=== PATIENT | male | born 1945 | race Caucasian/White ===

== ENCOUNTER 2017-05-03 08:08 | Emergency (ER) | payer MEDICARE, OTHER ==
[~2017-05-03] VITALS: Ht 193 cm; Wt 122.5 kg
[~2017-05-03 08:08] MED LIST: ALPROSTADIL INJ; AMIT50 PO; ASPI325 PO; Antivert25 MG PO; CARV25 PO; DILT180 PO; INSUAS7030 INJ; LISI20 PO; PROM25 PO; SIMV40 PO; TRAM50 PO
[2017-05-03 08:25] LABS: BASOPHILS ABSOLUTE AUTO 0.04 K/mm3 (0.00-0.23); BASOPHILS PERCENT AUTO 0 % (0-2); EOSINOPHILS ABSOLUTE AUTO 0.23 K/mm3 (0.00-0.68); EOSINOPHILS PERCENT AUTO 2 % (0-6); Hematocrit 38.5 % (37.0-53.0); Hemoglobin 12.7 g/dL (13.5-17.5); IMMATURE GRAN ABSOLUTE AUTO 0.04 K/mm3 (0.00-0.10); IMMATURE GRAN PERCENT AUTO 0 % (0-1); LYMPHOCYTES ABSOLUTE AUTO 1.31 K/mm3 (0.84-5.20); LYMPHOCYTES PERCENT AUTO 13 % (21-46); MONOCYTES ABSOLUTE AUTO 1.24 K/mm3 (0.16-1.47); MONOCYTES PERCENT AUTO 12 % (4-13); Mean Corpuscular HGB 31.6 pg (26.0-34.0); Mean Corpuscular Volume 96 fL (80-100); Mean Platelet Volume 10.6 fL (9.1-12.4); NEUTROPHILS ABSOLUTE AUTO 7.13 K/mm3 (1.96-9.15); NEUTROPHILS PERCENT AUTO 71 % (41-73); Platelet Count 209 K/mm3 (150-400); RDW Coefficient Variation 12.6 % (11.7-14.2); RDW Standard Deviation 44.8 fL (35.1-46.3); Red Blood Cell Count 4.02 M/mm3 (4.30-5.90); White Blood Cell Count 9.99 K/mm3 (4.00-11.30)
[2017-05-03 08:45] LABS: Bun/Creatinine Ratio 11.8 (12.0-20.0); Calcium, Blood 8.9 mg/dL (8.5-10.1); Creatinine, Blood 3.47 mg/dL (0.60-1.20); Potassium, Blood 4.6 mmol/L (3.5-5.5)
[2017-05-03] MEDS ORDERED: Prednisone20 MG PO (10:46)
== END 2017-05-03 11:16 | disposition home or self-care (01) ==
LOC: ER 08:08
PROVIDERS: Emergency Medicine
DX: T78.3XXA Angioneurotic edema, initial encounter (principal); T46.4X5A Adverse effect of angiotensin-converting-enzyme inhibitors, initial encounter; I25.2 Old myocardial infarction; E11.9 Type 2 diabetes mellitus without complications; Z95.5 Presence of coronary angioplasty implant and graft; Z88.0 Allergy status to penicillin; Z88.1 Allergy status to other antibiotic agents; Z91.013 Allergy to seafood; Z79.899 Other long term (current) drug therapy; Z79.4 Long term (current) use of insulin; Z79.82 Long term (current) use of aspirin
CPT/HCPCS: 36415; 80048; 85025; 93005; 93010; 96361; 96374; 96375; 99283; J1200; J2060; J2930; J3490; J7030

== ENCOUNTER 2020-04-28 10:01 | Inpatient (IN) | payer OTHER, MEDICARE ==
[~2020-04-28] VITALS: Ht 195.6 cm; Wt 121.6 kg
[~2020-04-28 10:01] MED LIST changes: -ASPI325 PO; +Acerola C500 MG PO; +Aspirin EC81 MG PO; +FURO40 PO; -INSUAS7030 INJ; +Isosorbide Mono30 MG PO; +NOVOLIN N100 UNIT/2 SC; +Prednisone20 MG PO; +SEVEC800 PO
[2020-04-28 10:48] LABS: BASOPHILS ABSOLUTE AUTO 0.07 K/mm3 (0.00-0.23); BASOPHILS PERCENT AUTO 0 % (0-2); EOSINOPHILS ABSOLUTE AUTO 0.09 K/mm3 (0.00-0.68); EOSINOPHILS PERCENT AUTO 0 % (0-6); Hematocrit 34.1 % (37.0-53.0); Hemoglobin 11.3 g/dL (13.5-17.5); IMMATURE GRAN ABSOLUTE AUTO 0.31 K/mm3 (0.00-0.10); IMMATURE GRAN PERCENT AUTO 2 % (0-1); LYMPHOCYTES ABSOLUTE AUTO 0.67 K/mm3 (0.84-5.20); LYMPHOCYTES PERCENT AUTO 3 % (21-46); MONOCYTES ABSOLUTE AUTO 1.89 K/mm3 (0.16-1.47); MONOCYTES PERCENT AUTO 9 % (4-13); Mean Corpuscular HGB 30.5 pg (26.0-34.0); Mean Corpuscular HGB Conc 33.1 g/dL (31.5-36.5); Mean Corpuscular Volume 92 fL (80-100); Mean Platelet Volume 10.7 fL (9.1-12.4); NEUTROPHILS ABSOLUTE AUTO 18.08 K/mm3 (1.96-9.15); NEUTROPHILS PERCENT AUTO 86 % (41-73); Platelet Count 326 K/mm3 (150-400); RDW Coefficient Variation 14.5 % (11.7-14.2); RDW Standard Deviation 48.7 fL (35.1-46.3); Red Blood Cell Count 3.71 M/mm3 (4.30-5.90); White Blood Cell Count 21.11 K/mm3 (4.00-11.30)
[2020-04-28] MEDS ORDERED: NOVOLIN R100 UNIT/2 SC (10:58)
[2020-04-28] MEDS ORDERED: HUMULIN N100 UNIT/6 SC (10:58)
[2020-04-28] MEDS ORDERED: GABA100 PO (10:59)
[2020-04-28 11:03] LABS: Albumin, Blood 2.6 g/dL (3.4-5.0); Albumin/Globulin Ratio 0.5 (0.8-1.8); Bilirubin, Total 1.4 mg/dL (0.1-1.0); Bun/Creatinine Ratio 7.1 (12.0-20.0); Calcium, Blood 9.9 mg/dL (8.5-10.1); Creatinine, Blood 4.66 mg/dL (0.60-1.20); Globulin, Blood 5.6 g/dL (2.2-4.0); Potassium, Blood 3.8 mmol/L (3.5-5.5); Total Protein, Blood 8.2 g/dL (6.4-8.2)
[2020-04-28 12:21] LABS: BASOPHILS ABSOLUTE AUTO 0.05 K/mm3 (0.00-0.23); BASOPHILS PERCENT AUTO 0 % (0-2); EOSINOPHILS ABSOLUTE AUTO 0.07 K/mm3 (0.00-0.68); EOSINOPHILS PERCENT AUTO 0 % (0-6); Hematocrit 31.4 % (37.0-53.0); Hemoglobin 10.7 g/dL (13.5-17.5); IMMATURE GRAN ABSOLUTE AUTO 0.23 K/mm3 (0.00-0.10); IMMATURE GRAN PERCENT AUTO 1 % (0-1); LYMPHOCYTES ABSOLUTE AUTO 0.73 K/mm3 (0.84-5.20); LYMPHOCYTES PERCENT AUTO 4 % (21-46); MONOCYTES ABSOLUTE AUTO 1.78 K/mm3 (0.16-1.47); MONOCYTES PERCENT AUTO 10 % (4-13); Mean Corpuscular HGB 31.2 pg (26.0-34.0); Mean Corpuscular HGB Conc 34.1 g/dL (31.5-36.5); Mean Corpuscular Volume 92 fL (80-100); NEUTROPHILS ABSOLUTE AUTO 14.88 K/mm3 (1.96-9.15); NEUTROPHILS PERCENT AUTO 84 % (41-73); Platelet Count 295 K/mm3 (150-400); RDW Coefficient Variation 14.5 % (11.7-14.2); RDW Standard Deviation 48.4 fL (35.1-46.3); Red Blood Cell Count 3.43 M/mm3 (4.30-5.90); White Blood Cell Count 17.74 K/mm3 (4.00-11.30)
[2020-04-28 12:39] LABS: Albumin, Blood 2.3 g/dL (3.4-5.0); Albumin/Globulin Ratio 0.5 (0.8-1.8); Bilirubin, Total 1.2 mg/dL (0.1-1.0); Bun/Creatinine Ratio 6.9 (12.0-20.0); Calcium, Blood 9.6 mg/dL (8.5-10.1); Creatinine, Blood 5.05 mg/dL (0.60-1.20); Globulin, Blood 4.9 g/dL (2.2-4.0); Potassium, Blood 3.8 mmol/L (3.5-5.5); Total Protein, Blood 7.2 g/dL (6.4-8.2)
--- NOTE | 2020-04-28 16:46 | NUR ---
PT STATES HE NO LONGER TAKES CARVEDILOL DUE TO SIDE EFFECTS, AND HAS DISCUSSED THIS WITH HIS
[2020-04-28 17:27] LABS: Influenza A, PCR Negative (NEGATIVE); Influenza B, PCR Negative (NEGATIVE); Resp Syncytial Virus, PCR Negative (NEGATIVE); SARS-Cov-2 (COVID-19) PCR, MMC Negative (NEGATIVE)
--- NOTE | 2020-04-28 21:51 | NUR ---
PT TO ICU 2 FOR PACU RECOVERY @ 2029, PT WAS ON 10 L PER NRB, FOLLOWING COMMANDS BUT NOT ANSWERING QUESTIONS, DILLON. PT VERY SLOW TO FULLY WAKE UP. SON AT BEDSIDE @ 2100 AND PT BECAME MORE AWAKE AND ORIENTED x4. PT BEGAN REPORTING SEVERE LEG CRAMPING, PRN FENTANYL ADMINISTERED WITH GOOD EFFECT, SEE MAR. DRESSING TO L LOWER LEG C/D/I. FISTULA TO L ARM NOTED. PT CURRENTLY ON 2L PER NC. RESTING IN BED, REPORTS MINIMAL PAIN/CRAMPING AT THIST YARELI.
--- NOTE | 2020-04-28 22:00 | NUR ---
REPORT CALLED TO INFORMATION AND DATA ARCHITECT ANALYSTIAN DOMINGUEZ.
[2020-04-29 04:13] LABS: BASOPHILS ABSOLUTE AUTO 0.05 K/mm3 (0.00-0.23); BASOPHILS PERCENT AUTO 0 % (0-2); EOSINOPHILS PERCENT AUTO 0 % (0-6); Hematocrit 28.7 % (37.0-53.0); Hemoglobin 9.4 g/dL (13.5-17.5); IMMATURE GRAN ABSOLUTE AUTO 0.48 K/mm3 (0.00-0.10); IMMATURE GRAN PERCENT AUTO 3 % (0-1); LYMPHOCYTES ABSOLUTE AUTO 0.46 K/mm3 (0.84-5.20); LYMPHOCYTES PERCENT AUTO 3 % (21-46); MONOCYTES ABSOLUTE AUTO 0.65 K/mm3 (0.16-1.47); MONOCYTES PERCENT AUTO 4 % (4-13); Mean Corpuscular HGB 30.4 pg (26.0-34.0); Mean Corpuscular HGB Conc 32.8 g/dL (31.5-36.5); Mean Corpuscular Volume 93 fL (80-100); Mean Platelet Volume 10.9 fL (9.1-12.4); NEUTROPHILS PERCENT AUTO 90 % (41-73); Platelet Count 290 K/mm3 (150-400); RDW Coefficient Variation 15.1 % (11.7-14.2); RDW Standard Deviation 50.8 fL (35.1-46.3); Red Blood Cell Count 3.09 M/mm3 (4.30-5.90); White Blood Cell Count 16.74 K/mm3 (4.00-11.30)
[2020-04-29 04:31] LABS: Alanine Aminotransfer (ALT/SGP 14 U/L (12-78); Albumin, Blood 2.2 g/dL (3.4-5.0); Albumin/Globulin Ratio 0.5 (0.8-1.8); Alk Phos 95 U/L (50-136); Anion Gap 11 mmol/L (6-16); Aspartate Aminotrans (AST/SGOT 21 U/L (12-37); Bilirubin, Total 1.3 mg/dL (0.1-1.0); Blood Urea Nitrogen 53 mg/dL (8-24); Bun/Creatinine Ratio 8.3 (12.0-20.0); CO2, Blood 30 mmol/L (21-32); Calcium, Blood 9.6 mg/dL (8.5-10.1); Chloride, Blood 95 mmol/L (98-108); Globulin, Blood 4.6 g/dL (2.2-4.0); Glomerular Filtration Rate 9 (60-); Glucose, Blood 243 mg/dL (70-99); Magnesium, Blood 2.3 mg/dL (1.6-2.4); Potassium, Blood 5.6 mmol/L (3.5-5.5); Sodium, Blood 136 mmol/L (136-145); Total Protein, Blood 6.8 g/dL (6.4-8.2); Vancomycin, Random 10.7 ug/mL
--- NOTE | 2020-04-29 07:16 | NUR ---
SHIFT SUMMARY PT ARRIVED TO THE UNIT AROUND 2215 IN STABLE CONDTION. VITALS STABLE, BP 130-140 SYSTOLIC. HR 90-100'S. O2 SATS >90% ON ROOM AIR. PAIN WAS NOT WELL CONTROLLED, USED PRN MEDICATIONS ON A SCHEDULE, REPOSITIONED, ELEVATED LIMB, AND WARMING PAD. DRESSING IS CDI, DRAIN IS FILLING APPROPRIATELY. PT STATED HAVING NAUSEA AROUND 0300, GAVE ZOFRAN WITH NO RELIEF. PT STARTED VOMITING, HAD ABOUT 400ML OUT, DARK BROWN/PURPLE WITH COFFEE GROUND APPEARANCE. PT STATED FEELING INCREASING ABD DISTENTION AND BLOATING. GAVE PRN REGLAN WITH LITTLE RELIEF OF NAUSEA, PT STILL HAVING SMALL FREQUENT AMOUNTS OF EMESIS. HGB TRENDING DOWN ON AM LABS. PT WAS ALERT, ORIENTED, AND COOPERATIVE WITH CARE.
[2020-04-29 09:49] LABS: Hematocrit 28.5 % (37.0-53.0); Hemoglobin 9.4 g/dL (13.5-17.5)
[2020-04-29 13:16] LABS: Hematocrit 28.5 % (37.0-53.0); Hemoglobin 9.6 g/dL (13.5-17.5)
--- NOTE | 2020-04-29 16:52 | NUR ---
SHIFT [facility] NO ACUTE EVENTS THIS SHIFT, PATIENT HAD INTERMITTENT NAUSEA THROUGHOUT SHIFT, NO EMESIS. PATIENT ON BEDREST, STARTED USING THE TRAPEZE FOR REPOSITIONING SUCCESSFULLY TODAY. ALERT AND ORIENTED, ABLE TO TAKE PO FLUIDS SAFELY. PATIENT ON CLEAR LIQUID DIET AT THIS TIME, HOWEVER COMPLAINED OF INCREASE IN NAUSEA AFTER EATING JELLO AND REQUESTED TO STICK TO ICE CHIPS AT THIS TIME. DURING BEDSIDE ECHO O2 SAT DECREASED TO MID-80S R/T POSITIONING, 2 L NC APPLIED AND O2 RETURNED TO 90S. PATIENT ON ROOM AIR FOR REST OF SHIFT. PATIENT REFUSED CARVEDILOL STATING HE WAS PREVIOUSLY ON IT AND IT MADE HIM "FEEL DIZZY". NO SIGNS OF DISCHARGE AT SURGICAL SITE, DR. PATEL AT BEDSIDE TODAY AND REMOVED MENG DRAIN. PATIENT RECIEVED DIALYSIS TODAY AT BEDSIDE. PER DR. ANDINO PLAN IS FOR EGD TOMORROW, NPO AT MIDNIGHT.
[2020-04-29 19:38] LABS: Hematocrit 29.8 % (37.0-53.0); Hemoglobin 9.9 g/dL (13.5-17.5)
[2020-04-30 02:24] LABS: BASOPHILS ABSOLUTE AUTO 0.06 K/mm3 (0.00-0.23); BASOPHILS PERCENT AUTO 0 % (0-2); EOSINOPHILS ABSOLUTE AUTO 0.14 K/mm3 (0.00-0.68); EOSINOPHILS PERCENT AUTO 1 % (0-6); Hematocrit 27.4 % (37.0-53.0); Hemoglobin 9.1 g/dL (13.5-17.5); IMMATURE GRAN ABSOLUTE AUTO 0.55 K/mm3 (0.00-0.10); IMMATURE GRAN PERCENT AUTO 4 % (0-1); LYMPHOCYTES ABSOLUTE AUTO 1.17 K/mm3 (0.84-5.20); LYMPHOCYTES PERCENT AUTO 8 % (21-46); MONOCYTES ABSOLUTE AUTO 1.15 K/mm3 (0.16-1.47); MONOCYTES PERCENT AUTO 8 % (4-13); Mean Corpuscular HGB Conc 33.2 g/dL (31.5-36.5); Mean Corpuscular Volume 93 fL (80-100); Mean Platelet Volume 10.9 fL (9.1-12.4); NEUTROPHILS ABSOLUTE AUTO 11.72 K/mm3 (1.96-9.15); NEUTROPHILS PERCENT AUTO 79 % (41-73); Platelet Count 290 K/mm3 (150-400); RDW Standard Deviation 51.1 fL (35.1-46.3); Red Blood Cell Count 2.94 M/mm3 (4.30-5.90); White Blood Cell Count 14.79 K/mm3 (4.00-11.30)
[2020-04-30 02:53] LABS: Albumin, Blood 2.1 g/dL (3.4-5.0); Albumin/Globulin Ratio 0.5 (0.8-1.8); Bilirubin, Total 1.3 mg/dL (0.1-1.0); Bun/Creatinine Ratio 8.9 (12.0-20.0); Calcium, Blood 9.3 mg/dL (8.5-10.1); Creatinine, Blood 5.76 mg/dL (0.60-1.20); Globulin, Blood 4.4 g/dL (2.2-4.0); Potassium, Blood 4.6 mmol/L (3.5-5.5); Total Protein, Blood 6.5 g/dL (6.4-8.2)
--- NOTE | 2020-04-30 06:42 | NUR ---
SHIFT SUMMARY PT STATED PAIN WAS MUCH MORE CONTROLLED THAN PREVIOUS NOC SHIFT. PT STILL NAUSEOUS T/O SHIFT WITHOUT VOMITTING. VITALS STABLE, BP 120-130'S SYSTOLIC. HR 90'S. O2 SATS 90'S ON ROOM AIR. PT HAD AN UNEVENTFUL NIGHT, HAS BEEN NPO SINCE 2400.
--- NOTE | 2020-04-30 08:24 | NUR ---
04/30/20 0824 Nirmala Maier History, Chart, Medications and Allergies reviewed before start of procedure.[facility] RICK YEE. SEE ANETHESIA RECORD FOR CARE.
--- NOTE | 2020-04-30 10:31 | NUR ---
REPORT GIVEN TO MONY SOSA ON SURGICAL.
--- NOTE | 2020-04-30 17:11 | NUR ---
SHIFT SUMMARY PT A/O X4; PLEASANT AND COOPERATIVE WITH CARE. PCU TRANSFER AFTER UNDERGOING AN EGD THIS AM. GASTRIC ULCERS AND COFFEE GROUND EMESIS FOUND ON EGD. PT WORKED WITH PHYSICAL THERAPY TODAY. PT RECENTLY UNDERWENT A BELOW THE KNEE AMPUTATION OF THE R LEG. PT GETS UP WITH A 1 ASSIST WITH A FWW. PROTONIC DRIP RUNNING. NO BLOOD DRAWS OR BP ON THE LEFT ARM. VSS; WILL REPORT TO JEISON SOSA.
[2020-04-30 17:18] LABS: Vancomycin, Random 14.8 ug/mL
[2020-05-01 06:00] LABS: Hematocrit 25.9 % (37.0-53.0); Hemoglobin 8.6 g/dL (13.5-17.5); Mean Corpuscular HGB 30.8 pg (26.0-34.0); Mean Corpuscular HGB Conc 33.2 g/dL (31.5-36.5); Mean Corpuscular Volume 93 fL (80-100); Mean Platelet Volume 10.9 fL (9.1-12.4); Platelet Count 270 K/mm3 (150-400); RDW Coefficient Variation 15.1 % (11.7-14.2); RDW Standard Deviation 50.9 fL (35.1-46.3); Red Blood Cell Count 2.79 M/mm3 (4.30-5.90); White Blood Cell Count 12.11 K/mm3 (4.00-11.30)
--- NOTE | 2020-05-01 06:06 | NUR ---
SHIFT SUMMARY: DEWAYNE IS A&OX4. VSS, NO ACUTE EVENTS OVERNIGHT. HE HAS WORN HIS CPAP DURING THE NIGHT. IV AND POWERGLIDE TO TANIYA PATENT. PROTONIX INFUSING. HE IS ABLE TO MAKE HIS NEEDS KNOWN. HE DOES NOT MAKE MUCH URINE D/T DIALYSIS, BUT DOES USE THE URINAL WHEN NEEDED. STUMP SOCK IN PLACE TO LLE, NO DRAINAGE NOTED. FISTUAL WITH POSITIVE THRILL AND BRUIT TO LEFT UPPER ARM. HE IS LYING IN BED WITH HIS CALL LIGHT IN REACH. WILL REPORT TO DAY SHIFT RN.
[2020-05-01 06:11] LABS: Anion Gap 11 mmol/L (6-16); Blood Urea Nitrogen 72 mg/dL (8-24); Bun/Creatinine Ratio 10.4 (12.0-20.0); CO2, Blood 28 mmol/L (21-32); Calcium, Blood 8.6 mg/dL (8.5-10.1); Chloride, Blood 99 mmol/L (98-108); Creatinine, Blood 6.95 mg/dL (0.60-1.20); Glomerular Filtration Rate 8 (60-); Glucose, Blood 105 mg/dL (70-99); Magnesium, Blood 2.3 mg/dL (1.6-2.4); Phosphorus, Blood 7.1 mg/dL (2.5-4.9); Potassium, Blood 4.6 mmol/L (3.5-5.5); Sodium, Blood 138 mmol/L (136-145)
[2020-05-01 06:34] LABS: BAND PERCENT MAN 1 % (0-8); BASOPHILS PERCENT MAN 0 % (0-2); EOSINOPHILS PERCENT MAN 5 % (0-6); LYMPHOCYTES ABSOLUTE MAN 0.84 K/mm3 (0.84-5.20); LYMPHOCYTES PERCENT MAN 7 % (21-46); MONOCYTES ABSOLUTE MAN 1.33 K/mm3 (0.16-1.47); MONOCYTES PERCENT MAN 11 % (4-13); MYELOCYTE ABSOLUTE MAN 0.48 K/mm3 (0.00-0.00); MYELOCYTE PERCENT MAN 4 % (0-0); NEUTROPHILS ABSOLUTE MAN 8.84 K/mm3 (1.96-9.15); SEG NEUTROPHILS PERCENT MAN 72 % (41-73); TOTAL CELLS COUNTED 100
--- NOTE | 2020-05-01 12:00 | NUR ---
RETURNS FROM DIALYSIS. DR PATEL ROUNDED & DRSG CHANGE COMPLETED
[2020-05-01 12:49] LABS: Vancomycin, Random 17.4 ug/mL
--- NOTE | 2020-05-01 16:24 | NUR ---
ADMIT: 04/28/20 DISCHARGE: DX: Necrotizing, cellulitis Lef leg CC: ADAN CALL: RESIDENCE: Home CAREGIVER: Ming Wang , Parent, DX: CKD-stage 5, CAD, DM-type 2, JEFFRY, PVD, see list DME: none CCM: none HOME HEALTH: none SUMMARY: 05/01/20- pt had upper EGD done on 04/30/20 with biopsy and below the knee amputation. Pt could potentially be d/c on . to SNF. -rachelw
--- NOTE | 2020-05-01 18:29 | NUR ---
SHIFT SUMMARY PT HAS DONE VERY WELL TODAY. PAIN WELL CONTROLLED, WORKING WELL W/ THERAPY & UP TO CHAIR FOR LUNCH, ADVANCED TO A REG TEXTURE DIET. PLAN FOR HOME WITH HOME HEALTH AFTER GETTING EQUIPTMENT SET UP AT HOME.
--- NOTE | 2020-05-02 07:14 | NUR ---
summary no acute changes. minimal discomfort. no evidence of any gi issues.pt repositions self in bed. r arm cont swollen. pt reported from iv infiltrates, but discussed with day rn who agrees to follow up with dr on rounds.
--- NOTE | 2020-05-02 17:55 | NUR ---
SHIFT SUMMARY ASSUMED CARE AROUND 1300, PT HAS BEEN PLEASANT AND DENIED NEEDS SINCE. PAIN CONTROLLED. DR PATEL & DR VALENZUELA INTO SEE PT. DRSFaye CHANGE TO L STUMP COMPLETED. EATING, DRINKING WELL.
--- NOTE | 2020-05-03 06:12 | NUR ---
POD 5 S/P L BKA. PT VSS T/O NIGHT, PT USING CPAP WHEN SLEEPING; CONT OX IN PLACE. DRESSING AND STUMP SOCK CDI. LLE ELEVATED ON PILLOWS IN BED. PT AWOKE C/O PHANTOM PAIN TO LEG, REP "PINS AND NEEDLES" SENSATION TO LOWER LEG. PAIN MGD PER EMAR W/RE[ RELIEF. PT JONAS REG PO, NO N/V, IS VOIDING URINE W/O DIFFICULTY. IV ABX CONT PER ORDERS. PLAN TO D/C HOME W/HH.
[2020-05-03 10:17] LABS: Hematocrit 23.7 % (37.0-53.0); Hemoglobin 8.1 g/dL (13.5-17.5)
[2020-05-03 10:35] LABS: Albumin, Blood 2.2 g/dL (3.4-5.0); Anion Gap 11 mmol/L (6-16); Blood Urea Nitrogen 48 mg/dL (8-24); Bun/Creatinine Ratio 8.4 (12.0-20.0); CO2, Blood 28 mmol/L (21-32); Calcium, Blood 8.4 mg/dL (8.5-10.1); Chloride, Blood 97 mmol/L (98-108); Creatinine, Blood 5.72 mg/dL (0.60-1.20); Glomerular Filtration Rate 10 (60-); Glucose, Blood 156 mg/dL (70-99); Phosphorus, Blood 5.1 mg/dL (2.5-4.9); Potassium, Blood 3.6 mmol/L (3.5-5.5); Sodium, Blood 136 mmol/L (136-145)
[2020-05-03] MEDS ORDERED: Norco 5-325 Ta1 EACH PO (14:54)
--- NOTE | 2020-05-03 15:17 | NUR ---
PT DISCHARGE VIA W/C WITH TRANSPORT SERVICE AT 1515 PT AOX4. PLEASANT REPORTS MINIMAL PAIN. PT DENIES CP/SOB, NAUSEA, VOMITING. POWERGLIDE ON TANIYA WAS DC'D INTACT. DISCHARGE INSTRUCTIONS GIVEN WITH A HAND CARRY RX OF HYDROCO/MO. ADIVISE PT TO F/U WITH DR. PATEL, DR. RAMOS AND PCP DR. MCCOLLUM. DRESSING CHANGE SUPPLIES WAS ALSO PROVIDED FOR PT TO TAKE HOME. ADVISE PT TO CALL FOR S/SX OF INF OR WORSENING SYMTPOMS. PT IS RECEPTIVE AND AGREED TO THE PLAN.
== END 2020-05-03 15:00 | disposition home or self-care (01) | DRG 474 ==
LOC: ER 10:01 → PCU 14:32 → SURS 14:32 → PCU 16:24 → SURS 04-30 10:52
PROVIDERS: Emergency Medicine; Internal Medicine; Orthopaedic Surgery; Pharmacist; Physician Assistant; ADMIT Internal Medicine Gastroenterology
PROC: 0Y6J0Z3 Detachment at Left Lower Leg, Low, Open Approach (ICD-10-PCS; principal; 2020-04-28 13:15)
PROC: 0DB78ZX Excision of Stomach, Pylorus, Via Natural or Artificial Opening Endoscopic, Diagnostic (ICD-10-PCS; 2020-04-30)
DX: M72.6 Necrotizing fasciitis (principal); N18.6 End stage renal disease; K25.4 Chronic or unspecified gastric ulcer with hemorrhage; I12.0 Hypertensive chronic kidney disease with stage 5 chronic kidney disease or end stage renal disease; N17.9 Acute kidney failure, unspecified; Z16.24 Resistance to multiple antibiotics; E11.43 Type 2 diabetes mellitus with diabetic autonomic (poly)neuropathy; E11.40 Type 2 diabetes mellitus with diabetic neuropathy, unspecified; K31.84 Gastroparesis; Z79.4 Long term (current) use of insulin; I25.10 Atherosclerotic heart disease of native coronary artery without angina pectoris; E11.22 Type 2 diabetes mellitus with diabetic chronic kidney disease; Z99.2 Dependence on renal dialysis; I48.0 Paroxysmal atrial fibrillation; B96.6 Bacteroides fragilis [B. fragilis] as the cause of diseases classified elsewhere; Z95.5 Presence of coronary angioplasty implant and graft; I25.2 Old myocardial infarction; Z87.891 Personal history of nicotine dependence
CPT/HCPCS: 0241U; 36415; 73701; 80053; 80069; 80202; 82550; 82947; 83605; 83735; 84484; 85014; 85018; 85025; 85651; 86140; 87040; 87070; 87075; 87076; 87185; 87205; 88305; 88307; 88311; 88342; 93005; 93010; 93926; 94660; 94762; 96361; 96365-59; 96367; 96375; 97110; 97116; 97161; 97530; 99285-25; A9270; C8929; C9113; J0692; J0881; J1815; J2370; J2405; J2704; J2765; J3010; J3370; J3480; J7030; J7042; J7050; Q9957; Q9967

== ENCOUNTER 2020-08-07 00:12 | Day surgery (SDC) | payer MEDICARE ==
[~2020-08-07 00:12] MED LIST changes: +GABA100 PO; +HUMULIN N100 UNIT/6 SC; +NOVOLIN R100 UNIT/2 SC; +Norco 5-325 Ta1 EACH PO
== END 2020-08-07 23:09 | disposition home or self-care (01) ==
LOC: WOUND 00:12
DX: E11.622 Type 2 diabetes mellitus with other skin ulcer (principal); L97.822 Non-pressure chronic ulcer of other part of left lower leg with fat layer exposed; Z89.512 Acquired absence of left leg below knee; I73.9 Peripheral vascular disease, unspecified; E11.40 Type 2 diabetes mellitus with diabetic neuropathy, unspecified
CPT/HCPCS: A9270

== ENCOUNTER 2020-08-16 03:48 | Day surgery (SDC) | payer MEDICARE | END 2020-08-16 22:52 | disposition home or self-care (01) | LOC: WOUND 03:48 | DX: E11.622 Type 2 diabetes mellitus with other skin ulcer (principal); L97.829 Non-pressure chronic ulcer of other part of left lower leg with unspecified severity; Z89.512 Acquired absence of left leg below knee; I73.9 Peripheral vascular disease, unspecified; E11.40 Type 2 diabetes mellitus with diabetic neuropathy, unspecified; E11.21 Type 2 diabetes mellitus with diabetic nephropathy; Z88.0 Allergy status to penicillin; Z88.8 Allergy status to other drugs, medicaments and biological substances; Z91.013 Allergy to seafood; Z90.5 Acquired absence of kidney | CPT/HCPCS: A9270 ==

== ENCOUNTER 2020-08-18 13:17 | Day surgery (SDC) | payer MEDICARE ==
[~2020-08-18] VITALS: Ht 193 cm; Wt 97.7 kg
--- NOTE | 2020-08-18 13:55 | NUR ---
08/18/20 1355 Maria Ines Campbell 1 TRY RIGHT HAND MOVED 2 TRY RIGHT HAND NO FLASH
== END 2020-08-18 15:08 | disposition home or self-care (01) ==
LOC: ORSCSDS 13:17
PROVIDERS: Internal Medicine Gastroenterology
PROC: 0DB68ZX Excision of Stomach, Via Natural or Artificial Opening Endoscopic, Diagnostic (ICD-10-PCS; principal; 2020-08-18 14:30)
DX: Z87.11 Personal history of peptic ulcer disease (principal); K27.4 Chronic or unspecified peptic ulcer, site unspecified, with hemorrhage; K44.9 Diaphragmatic hernia without obstruction or gangrene; K20.90 Esophagitis, unspecified without bleeding; E11.9 Type 2 diabetes mellitus without complications; I10 Essential (primary) hypertension; E78.5 Hyperlipidemia, unspecified; Z79.82 Long term (current) use of aspirin; Z79.899 Other long term (current) drug therapy
CPT/HCPCS: 82947; 88305; 88342; J2405; J2704; J7030; J7120

== ENCOUNTER 2020-08-23 03:29 | Day surgery (SDC) | payer MEDICARE | END 2020-08-23 23:35 | disposition home or self-care (01) | LOC: WOUND | DX: E11.622 Type 2 diabetes mellitus with other skin ulcer (principal); L97.822 Non-pressure chronic ulcer of other part of left lower leg with fat layer exposed; E11.51 Type 2 diabetes mellitus with diabetic peripheral angiopathy without gangrene; E11.40 Type 2 diabetes mellitus with diabetic neuropathy, unspecified; E11.21 Type 2 diabetes mellitus with diabetic nephropathy; Z89.512 Acquired absence of left leg below knee | CPT/HCPCS: A9270 ==

== ENCOUNTER 2020-08-30 04:41 | Day surgery (SDC) | payer MEDICARE | END 2020-08-30 22:59 | disposition home or self-care (01) | LOC: WOUND 04:41 | DX: E11.622 Type 2 diabetes mellitus with other skin ulcer (principal); L97.822 Non-pressure chronic ulcer of other part of left lower leg with fat layer exposed; E11.51 Type 2 diabetes mellitus with diabetic peripheral angiopathy without gangrene; E11.21 Type 2 diabetes mellitus with diabetic nephropathy; Z89.512 Acquired absence of left leg below knee; Z79.4 Long term (current) use of insulin; Z95.1 Presence of aortocoronary bypass graft; Z90.5 Acquired absence of kidney; Z99.2 Dependence on renal dialysis | CPT/HCPCS: A9270 ==

== ENCOUNTER 2020-09-06 02:25 | Day surgery (SDC) | payer MEDICARE | END 2020-09-06 23:52 | disposition home or self-care (01) | LOC: WOUND 02:25 | DX: E11.622 Type 2 diabetes mellitus with other skin ulcer (principal); L97.829 Non-pressure chronic ulcer of other part of left lower leg with unspecified severity; I73.9 Peripheral vascular disease, unspecified; E11.40 Type 2 diabetes mellitus with diabetic neuropathy, unspecified; Z89.512 Acquired absence of left leg below knee; Z95.1 Presence of aortocoronary bypass graft; E11.21 Type 2 diabetes mellitus with diabetic nephropathy | CPT/HCPCS: A9270 ==

== ENCOUNTER 2020-09-13 04:43 | Day surgery (SDC) | payer MEDICARE | END 2020-09-13 22:57 | disposition home or self-care (01) | LOC: WOUND 04:43 | DX: E11.622 Type 2 diabetes mellitus with other skin ulcer (principal); L97.822 Non-pressure chronic ulcer of other part of left lower leg with fat layer exposed; Z89.512 Acquired absence of left leg below knee; I73.9 Peripheral vascular disease, unspecified; E11.40 Type 2 diabetes mellitus with diabetic neuropathy, unspecified ==

== ENCOUNTER 2020-09-20 04:36 | Day surgery (SDC) | payer MEDICARE | END 2020-09-20 23:06 | disposition home or self-care (01) | LOC: WOUND 04:36 | DX: E11.622 Type 2 diabetes mellitus with other skin ulcer (principal); L97.822 Non-pressure chronic ulcer of other part of left lower leg with fat layer exposed; E11.51 Type 2 diabetes mellitus with diabetic peripheral angiopathy without gangrene; E11.40 Type 2 diabetes mellitus with diabetic neuropathy, unspecified; E11.21 Type 2 diabetes mellitus with diabetic nephropathy; Z89.512 Acquired absence of left leg below knee; Z79.4 Long term (current) use of insulin; Z99.2 Dependence on renal dialysis; Z95.1 Presence of aortocoronary bypass graft; Z90.5 Acquired absence of kidney; Z88.8 Allergy status to other drugs, medicaments and biological substances; Z88.1 Allergy status to other antibiotic agents; Z88.0 Allergy status to penicillin; Z91.013 Allergy to seafood | CPT/HCPCS: A9270 ==

== ENCOUNTER 2020-09-27 02:59 | Day surgery (SDC) | payer MEDICARE | END 2020-09-27 23:37 | disposition home or self-care (01) | LOC: WOUND 02:59 | DX: E11.622 Type 2 diabetes mellitus with other skin ulcer (principal); L97.822 Non-pressure chronic ulcer of other part of left lower leg with fat layer exposed; M79.604 Pain in right leg; I73.9 Peripheral vascular disease, unspecified; E11.40 Type 2 diabetes mellitus with diabetic neuropathy, unspecified; Z89.512 Acquired absence of left leg below knee | CPT/HCPCS: 36415; 85025; A9270; G0463 ==

== ENCOUNTER 2020-10-04 01:20 | Day surgery (SDC) | payer MEDICARE | END 2020-10-04 23:51 | disposition home or self-care (01) | LOC: WOUND 01:20 | DX: E11.622 Type 2 diabetes mellitus with other skin ulcer (principal); L97.822 Non-pressure chronic ulcer of other part of left lower leg with fat layer exposed; M79.604 Pain in right leg; I73.9 Peripheral vascular disease, unspecified; E11.40 Type 2 diabetes mellitus with diabetic neuropathy, unspecified; Z89.512 Acquired absence of left leg below knee; Z88.0 Allergy status to penicillin; Z88.8 Allergy status to other drugs, medicaments and biological substances; Z91.013 Allergy to seafood | CPT/HCPCS: A9270 ==

== ENCOUNTER 2020-10-13 01:28 | Day surgery (SDC) | payer MEDICARE | END 2020-10-13 22:48 | disposition home or self-care (01) | LOC: WOUND 01:28 | DX: E11.622 Type 2 diabetes mellitus with other skin ulcer (principal); L97.822 Non-pressure chronic ulcer of other part of left lower leg with fat layer exposed; Z89.512 Acquired absence of left leg below knee; E11.51 Type 2 diabetes mellitus with diabetic peripheral angiopathy without gangrene; E11.40 Type 2 diabetes mellitus with diabetic neuropathy, unspecified; E11.21 Type 2 diabetes mellitus with diabetic nephropathy; M79.604 Pain in right leg; Z79.4 Long term (current) use of insulin | CPT/HCPCS: A9270 ==

== ENCOUNTER 2020-10-20 01:51 | Day surgery (SDC) | payer MEDICARE | END 2020-10-20 12:00 | disposition home or self-care (01) | LOC: WOUND 01:51 | DX: E11.622 Type 2 diabetes mellitus with other skin ulcer (principal); L97.829 Non-pressure chronic ulcer of other part of left lower leg with unspecified severity; M79.604 Pain in right leg; I73.9 Peripheral vascular disease, unspecified; E11.40 Type 2 diabetes mellitus with diabetic neuropathy, unspecified; Z89.512 Acquired absence of left leg below knee; Z88.8 Allergy status to other drugs, medicaments and biological substances; Z91.013 Allergy to seafood | CPT/HCPCS: A9270; G0463 ==

== ENCOUNTER 2020-10-27 01:15 | Day surgery (SDC) | payer MEDICARE ==
[2020-11-21] MEDS ORDERED: ELIQUIS2.5 MG PO (16:13)
[2020-11-21] MEDS ORDERED: OMEP20ER PO (16:14)
[2020-11-21] MEDS ORDERED: Crestor20 MG PO (16:14)
== END 2020-10-27 23:18 | disposition home or self-care (01) ==
LOC: WOUND 01:15
DX: E11.622 Type 2 diabetes mellitus with other skin ulcer (principal); L97.829 Non-pressure chronic ulcer of other part of left lower leg with unspecified severity; M79.604 Pain in right leg; E11.51 Type 2 diabetes mellitus with diabetic peripheral angiopathy without gangrene; E11.40 Type 2 diabetes mellitus with diabetic neuropathy, unspecified; Z89.512 Acquired absence of left leg below knee
CPT/HCPCS: A9270; G0463

== ENCOUNTER 2020-11-07 08:00 | Day surgery (SDC) | payer MEDICARE ==
[2020-11-21] MEDS ORDERED: ELIQUIS2.5 MG PO (16:13)
[2020-11-21] MEDS ORDERED: OMEP20ER PO (16:14)
[2020-11-21] MEDS ORDERED: Crestor20 MG PO (16:14)
== END 2020-11-07 23:59 | disposition home or self-care (01) ==
LOC: WOUND 08:00
DX: E11.622 Type 2 diabetes mellitus with other skin ulcer (principal); L97.822 Non-pressure chronic ulcer of other part of left lower leg with fat layer exposed; E11.40 Type 2 diabetes mellitus with diabetic neuropathy, unspecified; E11.51 Type 2 diabetes mellitus with diabetic peripheral angiopathy without gangrene; I70.239 Atherosclerosis of native arteries of right leg with ulceration of unspecified site; S91.104S Unspecified open wound of right lesser toe(s) without damage to nail, sequela; X58.XXXS Exposure to other specified factors, sequela; Z89.512 Acquired absence of left leg below knee
CPT/HCPCS: G0463

== ENCOUNTER → 2020-11-10 | Outpatient (CLI) | payer MEDICARE ==
[~2020-11-10] MED LIST changes: +Crestor20 MG PO; +ELIQUIS2.5 MG PO; +OMEP20ER PO
[2020-11-10 08:53] LABS: Albumin/Globulin Ratio 0.8 (0.8-1.8); Bilirubin, Direct 0.4 mg/dL (0.0-0.3); Bilirubin, Indirect 0.3 mg/dL (0.1-0.7); Bilirubin, Total 0.7 mg/dL (0.1-1.0); Globulin, Blood 3.6 g/dL (2.2-4.0); Total Protein, Blood 6.6 g/dL (6.4-8.2)
== END | disposition home or self-care (01) ==
LOC: LAB DAV 08:29
PROVIDERS: Internal Medicine
DX: R17 Unspecified jaundice (principal)
CPT/HCPCS: 80076

== ENCOUNTER 2020-11-14 02:11 | Day surgery (SDC) | payer MEDICARE ==
[~2020-11-14 02:11] MED LIST changes: -Crestor20 MG PO; -ELIQUIS2.5 MG PO; -OMEP20ER PO
[2020-11-21] MEDS ORDERED: ELIQUIS2.5 MG PO (16:13)
[2020-11-21] MEDS ORDERED: Crestor20 MG PO (16:14)
[2020-11-21] MEDS ORDERED: OMEP20ER PO (16:14)
== END 2020-11-14 23:00 | disposition home or self-care (01) ==
LOC: WOUND 02:11
DX: E11.622 Type 2 diabetes mellitus with other skin ulcer (principal); L97.829 Non-pressure chronic ulcer of other part of left lower leg with unspecified severity; Z89.512 Acquired absence of left leg below knee; E11.40 Type 2 diabetes mellitus with diabetic neuropathy, unspecified; E11.51 Type 2 diabetes mellitus with diabetic peripheral angiopathy without gangrene; I70.239 Atherosclerosis of native arteries of right leg with ulceration of unspecified site; S91.104D Unspecified open wound of right lesser toe(s) without damage to nail, subsequent encounter; X58.XXXD Exposure to other specified factors, subsequent encounter; N18.9 Chronic kidney disease, unspecified; E11.22 Type 2 diabetes mellitus with diabetic chronic kidney disease
CPT/HCPCS: A9270; G0463

== ENCOUNTER 2020-11-22 10:22 | Day surgery (SDC) | payer OTHER, MEDICARE ==
[~2020-11-22] VITALS: Ht 193 cm; Wt 95.0 kg
[~2020-11-22 10:22] MED LIST changes: +Crestor20 MG PO; +ELIQUIS2.5 MG PO; +OMEP20ER PO
[2020-11-22 11:09] LABS: BASOPHILS ABSOLUTE AUTO 0.04 K/mm3 (0.00-0.23); BASOPHILS PERCENT AUTO 1 % (0-2); EOSINOPHILS ABSOLUTE AUTO 0.11 K/mm3 (0.00-0.68); EOSINOPHILS PERCENT AUTO 2 % (0-6); Hematocrit 34.7 % (37.0-53.0); Hemoglobin 11.6 g/dL (13.5-17.5); IMMATURE GRAN ABSOLUTE AUTO 0.02 K/mm3 (0.00-0.10); IMMATURE GRAN PERCENT AUTO 0 % (0-1); LYMPHOCYTES ABSOLUTE AUTO 0.56 K/mm3 (0.84-5.20); LYMPHOCYTES PERCENT AUTO 8 % (21-46); MONOCYTES ABSOLUTE AUTO 0.82 K/mm3 (0.16-1.47); MONOCYTES PERCENT AUTO 11 % (4-13); Mean Corpuscular HGB 33.2 pg (26.0-34.0); Mean Corpuscular HGB Conc 33.4 g/dL (31.5-36.5); Mean Corpuscular Volume 99 fL (80-100); Mean Platelet Volume 11.6 fL (9.1-12.4); NEUTROPHILS ABSOLUTE AUTO 5.66 K/mm3 (1.96-9.15); NEUTROPHILS PERCENT AUTO 78 % (41-73); Platelet Count 188 K/mm3 (150-400); RDW Coefficient Variation 14.4 % (11.7-14.2); RDW Standard Deviation 52.3 fL (35.1-46.3); Red Blood Cell Count 3.49 M/mm3 (4.30-5.90); White Blood Cell Count 7.21 K/mm3 (4.00-11.30)
[2020-11-22 11:24] LABS: International Normalized Ratio 1.18; Prothrombin Time Results 12.6 Sec (9.7-11.5)
[2020-11-22 11:30] LABS: Bun/Creatinine Ratio 6.4 (12.0-20.0); Calcium, Blood 9.6 mg/dL (8.5-10.1); Creatinine, Blood 3.73 mg/dL (0.60-1.20); Potassium, Blood 3.9 mmol/L (3.5-5.5)
== END 2020-11-22 23:22 | disposition home or self-care (01) ==
LOC: MHTC 10:22
PROVIDERS: Radiology Diagnostic Radiology
DX: E11.51 Type 2 diabetes mellitus with diabetic peripheral angiopathy without gangrene (principal); I70.213 Atherosclerosis of native arteries of extremities with intermittent claudication, bilateral legs; I12.0 Hypertensive chronic kidney disease with stage 5 chronic kidney disease or end stage renal disease; N18.6 End stage renal disease; E11.22 Type 2 diabetes mellitus with diabetic chronic kidney disease; E11.21 Type 2 diabetes mellitus with diabetic nephropathy; E78.5 Hyperlipidemia, unspecified; Z88.8 Allergy status to other drugs, medicaments and biological substances; Z88.0 Allergy status to penicillin; Z79.01 Long term (current) use of anticoagulants; Z79.82 Long term (current) use of aspirin; Z79.899 Other long term (current) drug therapy
CPT/HCPCS: 37224; 37228; 75625; 75716; 75774; 76937; 80048; 85025; 85610; 93005; 93010; 99152; 99153; C1725; C1760; C1769; C1887; C1894; C2623; J1644; J2250; J3010; J7030; J7050; Q9967

== ENCOUNTER 2020-11-28 02:00 | Day surgery (SDC) | payer MEDICARE | END 2020-11-28 23:09 | disposition home or self-care (01) | LOC: WOUND 02:00 | DX: E11.622 Type 2 diabetes mellitus with other skin ulcer (principal); E11.51 Type 2 diabetes mellitus with diabetic peripheral angiopathy without gangrene; I70.239 Atherosclerosis of native arteries of right leg with ulceration of unspecified site; L97.829 Non-pressure chronic ulcer of other part of left lower leg with unspecified severity; E11.40 Type 2 diabetes mellitus with diabetic neuropathy, unspecified; S91.104D Unspecified open wound of right lesser toe(s) without damage to nail, subsequent encounter; Z89.512 Acquired absence of left leg below knee | CPT/HCPCS: G0463 ==

== ENCOUNTER 2020-12-12 02:19 | Day surgery (SDC) | payer MEDICARE | END 2020-12-12 22:50 | disposition home or self-care (01) | LOC: WOUND 02:19 | DX: E11.622 Type 2 diabetes mellitus with other skin ulcer (principal); E11.621 Type 2 diabetes mellitus with foot ulcer; L97.822 Non-pressure chronic ulcer of other part of left lower leg with fat layer exposed; L97.518 Non-pressure chronic ulcer of other part of right foot with other specified severity; L97.812 Non-pressure chronic ulcer of other part of right lower leg with fat layer exposed; E11.51 Type 2 diabetes mellitus with diabetic peripheral angiopathy without gangrene; E11.40 Type 2 diabetes mellitus with diabetic neuropathy, unspecified; E11.21 Type 2 diabetes mellitus with diabetic nephropathy; I70.239 Atherosclerosis of native arteries of right leg with ulceration of unspecified site; Z89.512 Acquired absence of left leg below knee; Z99.2 Dependence on renal dialysis | CPT/HCPCS: A9270; G0463 ==

== ENCOUNTER 2020-12-26 02:52 | Day surgery (SDC) | payer OTHER, MEDICARE | END 2020-12-26 22:45 | disposition home or self-care (01) | LOC: WOUND 02:52 | DX: E11.622 Type 2 diabetes mellitus with other skin ulcer (principal); L97.822 Non-pressure chronic ulcer of other part of left lower leg with fat layer exposed; L97.812 Non-pressure chronic ulcer of other part of right lower leg with fat layer exposed; Z89.512 Acquired absence of left leg below knee; E11.40 Type 2 diabetes mellitus with diabetic neuropathy, unspecified; E11.51 Type 2 diabetes mellitus with diabetic peripheral angiopathy without gangrene; I70.239 Atherosclerosis of native arteries of right leg with ulceration of unspecified site; S91.104D Unspecified open wound of right lesser toe(s) without damage to nail, subsequent encounter; X58.XXXD Exposure to other specified factors, subsequent encounter | CPT/HCPCS: A9270; G0463 ==

== ENCOUNTER 2021-01-08 03:23 | Day surgery (SDC) | payer MEDICARE | END 2021-01-08 22:55 | disposition home or self-care (01) | LOC: WOUND 03:23 | PROC: 0JBN0ZZ Excision of Right Lower Leg Subcutaneous Tissue and Fascia, Open Approach (ICD-10-PCS; principal; 2021-01-08) | DX: E11.622 Type 2 diabetes mellitus with other skin ulcer (principal); L98.499 Non-pressure chronic ulcer of skin of other sites with unspecified severity; L97.812 Non-pressure chronic ulcer of other part of right lower leg with fat layer exposed; E11.21 Type 2 diabetes mellitus with diabetic nephropathy; E11.40 Type 2 diabetes mellitus with diabetic neuropathy, unspecified; E11.51 Type 2 diabetes mellitus with diabetic peripheral angiopathy without gangrene; I70.209 Unspecified atherosclerosis of native arteries of extremities, unspecified extremity; Z89.512 Acquired absence of left leg below knee; Z99.2 Dependence on renal dialysis | CPT/HCPCS: A9270 ==

== ENCOUNTER 2021-01-17 04:32 | Day surgery (SDC) | payer OTHER, MEDICARE | END 2021-01-17 23:00 | disposition home or self-care (01) | LOC: WOUND 04:32 | DX: E11.622 Type 2 diabetes mellitus with other skin ulcer (principal); L97.812 Non-pressure chronic ulcer of other part of right lower leg with fat layer exposed; L97.519 Non-pressure chronic ulcer of other part of right foot with unspecified severity; L97.819 Non-pressure chronic ulcer of other part of right lower leg with unspecified severity; E11.621 Type 2 diabetes mellitus with foot ulcer; E11.21 Type 2 diabetes mellitus with diabetic nephropathy; I70.239 Atherosclerosis of native arteries of right leg with ulceration of unspecified site; Z79.4 Long term (current) use of insulin; Z99.2 Dependence on renal dialysis; Z89.512 Acquired absence of left leg below knee; Z88.8 Allergy status to other drugs, medicaments and biological substances; Z88.1 Allergy status to other antibiotic agents; Z88.0 Allergy status to penicillin; Z91.013 Allergy to seafood | CPT/HCPCS: 87071; 87075; 87077; 87186; 87205; A9270 ==

== ENCOUNTER 2021-01-23 04:37 | Day surgery (SDC) | payer OTHER, MEDICARE | END 2021-01-23 22:44 | disposition home or self-care (01) | LOC: WOUND 04:37 | DX: E11.622 Type 2 diabetes mellitus with other skin ulcer (principal); L97.822 Non-pressure chronic ulcer of other part of left lower leg with fat layer exposed; L97.812 Non-pressure chronic ulcer of other part of right lower leg with fat layer exposed; E11.621 Type 2 diabetes mellitus with foot ulcer; L97.512 Non-pressure chronic ulcer of other part of right foot with fat layer exposed; I70.239 Atherosclerosis of native arteries of right leg with ulceration of unspecified site; E11.40 Type 2 diabetes mellitus with diabetic neuropathy, unspecified; Z89.512 Acquired absence of left leg below knee | CPT/HCPCS: A9270; G0463 ==

== ENCOUNTER 2021-01-30 01:32 | Day surgery (SDC) | payer OTHER, MEDICARE | END 2021-01-30 23:00 | disposition home or self-care (01) | LOC: WOUND 01:32 | DX: E11.622 Type 2 diabetes mellitus with other skin ulcer (principal); L97.812 Non-pressure chronic ulcer of other part of right lower leg with fat layer exposed; L97.829 Non-pressure chronic ulcer of other part of left lower leg with unspecified severity; E11.621 Type 2 diabetes mellitus with foot ulcer; L97.512 Non-pressure chronic ulcer of other part of right foot with fat layer exposed; E11.51 Type 2 diabetes mellitus with diabetic peripheral angiopathy without gangrene; I70.239 Atherosclerosis of native arteries of right leg with ulceration of unspecified site; L03.115 Cellulitis of right lower limb; E11.40 Type 2 diabetes mellitus with diabetic neuropathy, unspecified; Z89.512 Acquired absence of left leg below knee; Z88.1 Allergy status to other antibiotic agents; Z88.0 Allergy status to penicillin; Z88.8 Allergy status to other drugs, medicaments and biological substances | CPT/HCPCS: A9270; G0463 ==

== ENCOUNTER 2021-02-02 11:37 | Day surgery (SDC) | payer OTHER, MEDICARE ==
[2021-02-02] MEDS ORDERED: CEFDINIR300 M4 PO (15:29)
[2021-02-02] MEDS ORDERED: TRAM50 PO (15:29)
== END 2021-02-02 15:40 | disposition home or self-care (01) ==
LOC: ATC 11:37
DX: E11.622 Type 2 diabetes mellitus with other skin ulcer (principal); L97.812 Non-pressure chronic ulcer of other part of right lower leg with fat layer exposed; E11.621 Type 2 diabetes mellitus with foot ulcer; L97.512 Non-pressure chronic ulcer of other part of right foot with fat layer exposed; L03.115 Cellulitis of right lower limb; I70.239 Atherosclerosis of native arteries of right leg with ulceration of unspecified site; E11.40 Type 2 diabetes mellitus with diabetic neuropathy, unspecified; Z89.512 Acquired absence of left leg below knee; E11.51 Type 2 diabetes mellitus with diabetic peripheral angiopathy without gangrene; Z88.1 Allergy status to other antibiotic agents; Z88.0 Allergy status to penicillin; Z88.8 Allergy status to other drugs, medicaments and biological substances; Z91.013 Allergy to seafood
CPT/HCPCS: 96365; J0878

== ENCOUNTER 2021-02-04 05:19 | Day surgery (SDC) | payer OTHER, MEDICARE ==
[~2021-02-04 05:19] MED LIST changes: +CEFDINIR300 M4 PO
== END 2021-02-04 15:15 | disposition home or self-care (01) ==
LOC: ATC 05:19
DX: E11.621 Type 2 diabetes mellitus with foot ulcer (principal); L97.512 Non-pressure chronic ulcer of other part of right foot with fat layer exposed; L97.812 Non-pressure chronic ulcer of other part of right lower leg with fat layer exposed; E11.51 Type 2 diabetes mellitus with diabetic peripheral angiopathy without gangrene; I70.239 Atherosclerosis of native arteries of right leg with ulceration of unspecified site; L03.115 Cellulitis of right lower limb; Z89.512 Acquired absence of left leg below knee; E11.40 Type 2 diabetes mellitus with diabetic neuropathy, unspecified; Z88.0 Allergy status to penicillin; Z88.8 Allergy status to other drugs, medicaments and biological substances; Z91.013 Allergy to seafood
CPT/HCPCS: 96365; J0878

== ENCOUNTER 2021-02-05 05:49 | Day surgery (SDC) | payer OTHER, MEDICARE ==
[~2021-02-05] VITALS: Ht 193 cm; Wt 94.0 kg
[2021-02-05 07:05] LABS: BASOPHILS ABSOLUTE AUTO 0.05 K/mm3 (0.00-0.23); BASOPHILS PERCENT AUTO 1 % (0-2); EOSINOPHILS ABSOLUTE AUTO 0.14 K/mm3 (0.00-0.68); EOSINOPHILS PERCENT AUTO 1 % (0-6); Hematocrit 28.4 % (37.0-53.0); Hemoglobin 9.8 g/dL (13.5-17.5); IMMATURE GRAN ABSOLUTE AUTO 0.04 K/mm3 (0.00-0.10); IMMATURE GRAN PERCENT AUTO 0 % (0-1); LYMPHOCYTES ABSOLUTE AUTO 0.41 K/mm3 (0.84-5.20); LYMPHOCYTES PERCENT AUTO 4 % (21-46); MONOCYTES ABSOLUTE AUTO 1.16 K/mm3 (0.16-1.47); MONOCYTES PERCENT AUTO 11 % (4-13); Mean Corpuscular HGB 32.7 pg (26.0-34.0); Mean Corpuscular HGB Conc 34.5 g/dL (31.5-36.5); Mean Corpuscular Volume 95 fL (80-100); Mean Platelet Volume 11.3 fL (9.1-12.4); NEUTROPHILS ABSOLUTE AUTO 8.94 K/mm3 (1.96-9.15); NEUTROPHILS PERCENT AUTO 83 % (41-73); Platelet Count 203 K/mm3 (150-400); RDW Coefficient Variation 15.1 % (11.7-14.2); RDW Standard Deviation 51.8 fL (35.1-46.3); White Blood Cell Count 10.74 K/mm3 (4.00-11.30)
[2021-02-05 07:23] LABS: International Normalized Ratio 1.35; Prothrombin Time Results 13.9 Sec (9.7-11.5)
[2021-02-05 07:26] LABS: Bun/Creatinine Ratio 8.3 (12.0-20.0); Calcium, Blood 9.2 mg/dL (8.5-10.1); Creatinine, Blood 6.49 mg/dL (0.60-1.20); Potassium, Blood 4.9 mmol/L (3.5-5.5)
[2021-02-05 07:58] LABS: SARS-Cov-2 (COVID-19) PCR, MMC NEGATIVE (NEGATIVE)
--- NOTE | 2021-02-05 09:38 | NUR ---
PT RETURNED TO RECOVERY ROOM IN BED. LEFT FEMORAL GRON SITE SOFT NON-TENDER WITH NO HEMATOMA, NO PULSATILE BLEEDING AND INTACT DRESSING. L BKT STUMP PINK AND WARM. PT DENIES CHEST PAIN CALL LIGHT IN REACH.
--- NOTE | 2021-02-05 11:31 | NUR ---
DISCHARGE INSTRUCTIONS REVIEWED ALL QUESTIONS ANSWERED. NO CHANGES TO LEFT FEMORAL GROIN SITE; SOFT NON-TENDER WITH NO HEMATOMA, NO PULSATILE BLEEDING.
--- NOTE | 2021-02-05 12:35 | NUR ---
NO CHANGES TO LEFT GROIN SITE. PT ARRIVED WITH IV IN PLACE FOR THERAPY. PT ESCORTED OUT VIA WHEELCHAIR ESCORT.
== END 2021-02-05 12:40 | disposition home or self-care (01) ==
LOC: MHTC 05:49
PROVIDERS: Radiology Diagnostic Radiology
DX: E11.51 Type 2 diabetes mellitus with diabetic peripheral angiopathy without gangrene (principal); I70.211 Atherosclerosis of native arteries of extremities with intermittent claudication, right leg; L97.919 Non-pressure chronic ulcer of unspecified part of right lower leg with unspecified severity; E78.5 Hyperlipidemia, unspecified; I12.0 Hypertensive chronic kidney disease with stage 5 chronic kidney disease or end stage renal disease; N18.6 End stage renal disease; E11.22 Type 2 diabetes mellitus with diabetic chronic kidney disease; Z88.0 Allergy status to penicillin; Z88.1 Allergy status to other antibiotic agents; Z88.8 Allergy status to other drugs, medicaments and biological substances; Z79.82 Long term (current) use of aspirin; Z79.899 Other long term (current) drug therapy; Z20.822 Contact with and (suspected) exposure to COVID-19
CPT/HCPCS: 76937; 80048; 85025; 85610; 99152; 99153; C1725; C1760; C1769; C1887; C1894; C2623; J1644; J2250; J3010; J7030; J7050; Q9967; U0004

== ENCOUNTER 2021-02-07 04:37 | Day surgery (SDC) | payer OTHER, MEDICARE ==
[2021-02-07] MEDS ORDERED: THERA-D2000 UNIT PO (19:42)
[2021-02-07] MEDS ORDERED: SUPER B COMPLEX PO (19:43)
== END 2021-02-07 23:02 | disposition home or self-care (01) ==
LOC: WOUND 04:37
DX: E11.622 Type 2 diabetes mellitus with other skin ulcer (principal); L97.812 Non-pressure chronic ulcer of other part of right lower leg with fat layer exposed; L97.822 Non-pressure chronic ulcer of other part of left lower leg with fat layer exposed; L97.819 Non-pressure chronic ulcer of other part of right lower leg with unspecified severity; E11.621 Type 2 diabetes mellitus with foot ulcer; L97.512 Non-pressure chronic ulcer of other part of right foot with fat layer exposed; E11.51 Type 2 diabetes mellitus with diabetic peripheral angiopathy without gangrene; I70.239 Atherosclerosis of native arteries of right leg with ulceration of unspecified site; L03.115 Cellulitis of right lower limb; E11.40 Type 2 diabetes mellitus with diabetic neuropathy, unspecified; Z89.512 Acquired absence of left leg below knee; Z79.4 Long term (current) use of insulin
CPT/HCPCS: A9270; G0463

== ENCOUNTER 2021-02-07 14:54 | Inpatient (IN) | payer OTHER ==
[~2021-02-07] VITALS: Ht 193 cm; Wt 97.2 kg
[2021-02-07 17:21] LABS: BASOPHILS ABSOLUTE AUTO 0.04 K/mm3 (0.00-0.23); BASOPHILS PERCENT AUTO 1 % (0-2); EOSINOPHILS PERCENT AUTO 1 % (0-6); Hematocrit 27.8 % (37.0-53.0); Hemoglobin 9.4 g/dL (13.5-17.5); IMMATURE GRAN ABSOLUTE AUTO 0.04 K/mm3 (0.00-0.10); IMMATURE GRAN PERCENT AUTO 1 % (0-1); LYMPHOCYTES ABSOLUTE AUTO 0.38 K/mm3 (0.84-5.20); LYMPHOCYTES PERCENT AUTO 5 % (21-46); MONOCYTES ABSOLUTE AUTO 0.96 K/mm3 (0.16-1.47); MONOCYTES PERCENT AUTO 12 % (4-13); Mean Corpuscular HGB 32.3 pg (26.0-34.0); Mean Corpuscular HGB Conc 33.8 g/dL (31.5-36.5); Mean Corpuscular Volume 96 fL (80-100); Mean Platelet Volume 11.2 fL (9.1-12.4); NEUTROPHILS PERCENT AUTO 80 % (41-73); Platelet Count 190 K/mm3 (150-400); RDW Coefficient Variation 15.6 % (11.7-14.2); RDW Standard Deviation 53.3 fL (35.1-46.3); Red Blood Cell Count 2.91 M/mm3 (4.30-5.90); White Blood Cell Count 7.72 K/mm3 (4.00-11.30)
[2021-02-07 17:44] LABS: Albumin, Blood 2.4 g/dL (3.4-5.0); Albumin/Globulin Ratio 0.5 (0.8-1.8); Bilirubin, Total 1.1 mg/dL (0.1-1.0); Bun/Creatinine Ratio 6.8 (12.0-20.0); Calcium, Blood 9.3 mg/dL (8.5-10.1); Creatinine, Blood 3.24 mg/dL (0.60-1.20); Globulin, Blood 4.7 g/dL (2.2-4.0); Potassium, Blood 3.6 mmol/L (3.5-5.5); Total Protein, Blood 7.1 g/dL (6.4-8.2)
[2021-02-07 19:04] LABS: International Normalized Ratio 1.33; Prothrombin Time Results 13.7 Sec (9.7-11.5)
[2021-02-07 19:19] LABS: SARS-Cov-2 (COVID-19) PCR, MMC NEGATIVE (NEGATIVE)
[2021-02-07] MEDS ORDERED: THERA-D2000 UNIT PO (19:42)
[2021-02-07] MEDS ORDERED: SUPER B COMPLEX PO (19:43)
--- NOTE | 2021-02-08 05:01 | NUR ---
PT IS A/OX3. ABLE TO MAKE HIS NEEDS KNOWN. ARRIVED TO UNIT AT APPROX 2222. PT WAS SENT TO ED FROM [facility] FOR FURTHER EVAL OF RLE WOUNDS. HE WAS ADMITTED FOR RT ACHILLES TENDON RUPTURE, RLE CELLULITIS, RLE ULCERS (STAGE 4 TO HEEL) & SACRAL ULCER/MACERATION. ORIENTED TO ROOM, STAFF & CALL LIGHT. PMH/PSH INCLUDES: HTN, CAD, DMT2, CHF, ESRD W/HD, CHF, AFIB, ANEMIA, HYPONATREMIA, RENAL CA, PROSTATE CA, NM X3, JEFFRY W/CPAP, CARDIAC STENTS, RT NEPHRECTOMY, CABG X3, LTHA, LBKA & PROSTATECTOMY. TELE: SR W/PVC'S. DENIES ANY CHEST PAIN, PRESSURE OR PALPITATIONS. USED CPAP WHILE SLEEPING. CONT PULSE OX IN PLACE. LUE FISTULA FOR HD, EKTA. DIALYSIS DAYS M/W/F 0015-2233 AT [facility]. RLE EDEMATOUS W/SEVERAL ULCERS. RLE FLOATED. PAIN MANAGED W/PRN MEDS PER EMAR. NPO FOR PROCEDURE.
[2021-02-08 05:50] LABS: BASOPHILS ABSOLUTE AUTO 0.04 K/mm3 (0.00-0.23); BASOPHILS PERCENT AUTO 0 % (0-2); EOSINOPHILS ABSOLUTE AUTO 0.13 K/mm3 (0.00-0.68); EOSINOPHILS PERCENT AUTO 1 % (0-6); Hemoglobin 8.9 g/dL (13.5-17.5); IMMATURE GRAN ABSOLUTE AUTO 0.05 K/mm3 (0.00-0.10); IMMATURE GRAN PERCENT AUTO 1 % (0-1); LYMPHOCYTES ABSOLUTE AUTO 0.39 K/mm3 (0.84-5.20); LYMPHOCYTES PERCENT AUTO 4 % (21-46); MONOCYTES ABSOLUTE AUTO 1.29 K/mm3 (0.16-1.47); MONOCYTES PERCENT AUTO 14 % (4-13); Mean Corpuscular HGB 33.2 pg (26.0-34.0); Mean Corpuscular HGB Conc 34.2 g/dL (31.5-36.5); Mean Corpuscular Volume 97 fL (80-100); Mean Platelet Volume 11.2 fL (9.1-12.4); NEUTROPHILS ABSOLUTE AUTO 7.09 K/mm3 (1.96-9.15); NEUTROPHILS PERCENT AUTO 79 % (41-73); Platelet Count 168 K/mm3 (150-400); RDW Coefficient Variation 15.8 % (11.7-14.2); RDW Standard Deviation 53.7 fL (35.1-46.3); Red Blood Cell Count 2.68 M/mm3 (4.30-5.90); White Blood Cell Count 8.99 K/mm3 (4.00-11.30)
[2021-02-08 06:51] LABS: Albumin, Blood 2.2 g/dL (3.4-5.0); Anion Gap 9 mmol/L (6-16); Blood Urea Nitrogen 27 mg/dL (8-24); Bun/Creatinine Ratio 6.9 (12.0-20.0); CO2, Blood 34 mmol/L (21-32); Chloride, Blood 89 mmol/L (98-108); Creatinine, Blood 3.92 mg/dL (0.60-1.20); Glomerular Filtration Rate 15 (60-); Glucose, Blood 79 mg/dL (70-99); Phosphorus, Blood 4.3 mg/dL (2.5-4.9); Potassium, Blood 3.6 mmol/L (3.5-5.5); Sodium, Blood 132 mmol/L (136-145)
--- NOTE | 2021-02-08 11:54 | NUR ---
PATIENT ALERT AND ORIENTED X4. ABLE TO MOVE ALL EXTREMITIES IN BED. NUMBNESS/TINGLING TO EFT FOOT/LOWER LEG. HISTORY OF L BKA. SCAR HEALING WELL. LEFT LOWER LEG OVERALL RED WITH MULTIPLE ULCERS AND CELLULITIS. LARGE WOUND TO ACHILLES TENDON AREA, WITH ACHILLES TENDON RUPTURE. PICTURES TAKEN AND IN CHART. COCCYX PRESSURE ULCER CLEANED AND MEPILEX IN PLACE. PICTURES IN CHART WELL. BRUISING TO LEFT CHEST BELOW NIPPLE LINE, PATIENT STATES THIS BRUISE IS FROM A FALL HE HAD ON FRIDAY. TELE SHOWING SINUS RHYTHM WITH PVC'S. VITAL SIGNS STABLE. ON ROOM AIR SATING LOW-MID 90'S. NO URINE OUTPUT, DIALYSIS PATIENT, RASHAWN FISTULA. WHEELCHAIR BOUND AT BASELINE. DR. ANGEL IN TO ASSESS. NO SURGERY TODAY ON HIS END. PODIATRY CONSULT PLACED. Q6 BLOOD SUGARS FOR NPO STATUS. ANTIBIOTICS INFUSED THIS AM. SON IN ROOM AT THIS TIME. CALL LIGHT IN REACH. WILL CONTINUE TO MONITOR.
--- NOTE | 2021-02-08 12:59 | NUR ---
DR. ANGEL IN TO SEE PATIENT. DECIDED NOT TO DO SURGERY TODAY. NEW ORDERS FOR PODIATRY CONSULT. FLOATING RIGHT HEAL TO NOT TOUCH BED. SPOKE WITH DR. CABELLO ON PHONE AT 1235. PLANS TO COME SEE PATIENT LATER TODAY. UPDATED DR. RED DIET ORDERED. SPOKE WITH MARY FROM PALLIATIVE CARE, PLANS TO COME SPEAK WITH PATIENT AND SON.
--- NOTE | 2021-02-08 15:27 | NUR ---
DR. CABELLO IN TO SEE PATIENT. RIGHT HEEL WRAPPED WITH XEROFORM AND KERLEX GAUZE. TO BE CHANGED DAILY OR NEEDED IF ANY DRAINAGE. VITAL SIGNS STABLE. PAIN MANAGED AT THIS TIME.
--- NOTE | 2021-02-08 17:39 | NUR ---
Pt requested a visit with Palliative care today, prior to his surgery. I met with him and his son Bang to talk about pt's upcoming scheduled amputation. We talked for quite some time today, and pt states he simply needed to explore his feelings regarding losing his right leg. We talked about the things he likes about life, like gardening amd making bird houses and assorted other small wooden structures. He states, "So much of the life we life starts and ends in our minds". He tells me he has always been a positive person, even when he began dialysis 3 times weekly for life. Pt's son Bang has concerns and questions as well, like the [facility]'t [facility] the pt 100% disabled at this point. I don't have an answer for this, but I did explain I would pass it on to care management to work on.
--- NOTE | 2021-02-08 17:45 | NUR ---
SHIFT SUMMARY: PATIENT REMAINS ALERT AND ORIENTED X4. NO ACUTE CHANGES. VITAL SIGNS REMAIN STABLE. ON ROOM AIR. RIGHT LEG PAIN THROUGHOUT THE DAY CONTROLLED WITH MEDICATIONS PER EMAR. OFF LOADING HEEL AND DRESSING FROM DR. CABELLO REMAINS IN PLACE. PATIENT SLEEPING AT THIS TIME. Q2 TURNING AND NEEDED. AC BLOOD SUGARS. PATIENT DIALYSIS SCHEDULE NORMALLY FRIDAY, FRIDAY, FRIDAY. CALL LIGHT IN REACH. WILL CONTINUE TO MONITOR AND REPORT OFF.
--- NOTE | 2021-02-08 18:39 | NUR ---
UPDATE: PATIENT HAD MODERATE SIZE EMISIS THAT WAS MATTEO COLORED. SECOND RN TO LOOK AND VERIFIED COFFEE GROUND EMISIS. DR. RED UPDATED. NEW ORDERS IN PLACE. PATIENT DENIES ABDOMINAL PAIN. STATES HE IS HAVING A SMALL AMOUNT OF NAUSEA. WILL GIVE ZOFRAN. STATES HE HAS HAD A PREVIOUS "BLEEDING ULCER". THAT HE USED TO SEE A GI DOCTOR FOR BUT THE GI DOCTOR MOVED AND HE IS NO LONGER GETTING TREATMENT. PLAN FOR GI CONSULT AND PROTONIX TO BE STARTED.
--- NOTE | 2021-02-08 21:12 | NUR ---
POST OP PT IN ROOM AT 1900. AAOX4. LAP ABD INCISIONS X3 C/D/I. INDEPENDENT IN ROOM. TOLERATING PO INTAKE + JELLO/CRACKERS. PT VOIDED IN TOILET X2. VS NOTED. AT BEDSIDE. PT REPORTING DISCOMFORT AT TOLERABLE LEVEL POST 0.5 TABLET NORCO, REQUESTING TO BE DISCHARGED. DISCHARGE INSTRUCTIONS GIVEN AT 2029 + QUESTIONS ANSWERED. IV DC'D WNL. PT CHANGED INTO CLOTHES + OUT IN HALLS AMBULATING TO CAR INDEPENDENTLY, WITH BELONGINGS AT 2100.
--- NOTE | 2021-02-08 23:26 | NUR ---
GI CONSULT DR ROJAS NOTIFIED THERE IS NO GI AVAILABLE FOR CONSULT AT THIS TIME. REQUESTED TO BE INFORMED IF COFFEE GROUND EMESIS CONTINUES. LAST EMESIS 3 HRS AGO. NO NEW ORDERS AT THIS TIME. PT CURRENTLY RESTING IN BED WITH CALL LIGHT IN REACH.
[2021-02-09 04:41] LABS: BASOPHILS ABSOLUTE AUTO 0.03 K/mm3 (0.00-0.23); BASOPHILS PERCENT AUTO 0 % (0-2); EOSINOPHILS ABSOLUTE AUTO 0.01 K/mm3 (0.00-0.68); EOSINOPHILS PERCENT AUTO 0 % (0-6); Hematocrit 29.1 % (37.0-53.0); Hemoglobin 9.9 g/dL (13.5-17.5); IMMATURE GRAN ABSOLUTE AUTO 0.06 K/mm3 (0.00-0.10); IMMATURE GRAN PERCENT AUTO 1 % (0-1); LYMPHOCYTES ABSOLUTE AUTO 0.28 K/mm3 (0.84-5.20); LYMPHOCYTES PERCENT AUTO 2 % (21-46); MONOCYTES ABSOLUTE AUTO 0.85 K/mm3 (0.16-1.47); MONOCYTES PERCENT AUTO 7 % (4-13); Mean Corpuscular HGB 32.7 pg (26.0-34.0); Mean Corpuscular Volume 96 fL (80-100); Mean Platelet Volume 11.2 fL (9.1-12.4); NEUTROPHILS ABSOLUTE AUTO 10.79 K/mm3 (1.96-9.15); NEUTROPHILS PERCENT AUTO 90 % (41-73); Platelet Count 224 K/mm3 (150-400); RDW Coefficient Variation 15.9 % (11.7-14.2); RDW Standard Deviation 54.4 fL (35.1-46.3); Red Blood Cell Count 3.03 M/mm3 (4.30-5.90); White Blood Cell Count 12.02 K/mm3 (4.00-11.30)
[2021-02-09 04:56] LABS: Bun/Creatinine Ratio 7.9 (12.0-20.0); Creatinine, Blood 5.35 mg/dL (0.60-1.20); Potassium, Blood 4.4 mmol/L (3.5-5.5)
--- NOTE | 2021-02-09 08:51 | NUR ---
EMESIS PT HAD APPROX 350 OF DARK BROWN COFFEE GROUND EMESIS. PT REPORTS FEELING BETTER ONCE HE HAD VOMITED AND BELLY APPEARS LESS DISTENDED THAN PRIOR ASSESSMENT.
--- NOTE | 2021-02-09 09:45 | NUR ---
ng tube inserted at this time. pt tolerated well, small amount coffee ground return on placement. pt taken to dialysis after placement. ng tube connected to low intermittent in dialysis center.
--- NOTE | 2021-02-09 13:43 | NUR ---
Follow up visit made today with pt after receiving a call from his bedside nurse Yeyo. Yeyo reports pt has been talking about "ending it all", in regards to his upcoming BKA of R leg r/t poor circulation, multiple non-healing ulcers to RLE, and a ruptured Achilles tendon that is non-repairable. Cultures reveal infection, currently being treated with 3 seperate antibiotics, with no improvement. The pt continued to speak with bedside nurse Yeyo this morning, about his new thoughts about not going through with the surgery, changing his code status and stopping dialysis. However, when I met with pt, he stated he was "just thinking about how discouraged he feels about losing his other leg, and his fear that he will no longer have quality of life, but that he'll have to see what it's like before deciding. He did agree he will participate in rehab, as they will help him learn his new modified mobility. Both of his boys are visiting today, which also appears to greatly elevate his mood. He also states he wants to remain a full code for now. I will remain available.
[2021-02-09 15:36] LABS: Hematocrit 27.8 % (37.0-53.0); Hemoglobin 9.3 g/dL (13.5-17.5)
--- NOTE | 2021-02-09 16:40 | NUR ---
SHIFT SUMMARY AA0X4. PT HAS DENIED NAUSEA SINCE EMESIS THIS AM AND NG TUBE PLACEMENT. POST DIALYSIS PT HAD SEVERE DISCOMFORT AND NG TUBE WAS REMOVED. HE HAS DENIED NAUSEA SINCE PLACEMENT BEFORE DIALYSIS, NO MORE EMESIS TODAY. PT WAS MADE SIPS AND CHIPS. HAS NOT HAD CHIPS SINCE JUST AFTER LUNCH. PT LEFT FOR EGD PROCEDURE AT 1640. DRESSING REMAINS INTACT TO RLE. PT ASKED TO HAVE IT CHANGED THIS EVENING. HE HAS BEEN ON TELE IN AFIB T/O SHIFT.
--- NOTE | 2021-02-09 16:55 | NUR ---
PT HERE TO DAYSURGERY RECENTLY BY UMANG. PT WAS MOVED TO [facility] WITH MULT ASSIST. History, Chart, Medications and Allergies reviewed before start of procedure. Lungs clear T/O to Auscultation. Patient confirms NPO status and agrees with scheduled surgery. Pre-Op teaching done. Pt verbalizes understanding.
--- NOTE | 2021-02-09 17:45 | NUR ---
02/09/21 5531 Alex Hammond History, Chart, Medications and Allergies reviewed before start of procedure. EKG MONITORED DURING PROCEDURE. MONITOR INTACT WITH CONTINUOUS PULSE OXIMETRY AND INTERMITTENT BP. O2 VIA N/C INTACT THROUGHOUT SEDATION/PROCEDURE. Bite Block Placed. See Anesthesia record/DR SHELBY.
--- NOTE | 2021-02-09 18:39 | NUR ---
PT RETURNED FROM EGD. DENIES PAIN AND DENIES NAUSEA. AA0X4. PLAN IS TO START CLEAR LIQUIDS. PT REPORTS FEELING BETTER OVERALL. PER REPORT NO BLEEDING ULCERS CURRENTLY.
[2021-02-09 22:02] LABS: Hematocrit 26.5 % (37.0-53.0)
[2021-02-10 04:14] LABS: Hematocrit 28.4 % (37.0-53.0); Hemoglobin 9.5 g/dL (13.5-17.5)
--- NOTE | 2021-02-10 04:50 | NUR ---
SHIFT SUMMARY S/P DX EGD (RESULTS IN EMR), MULTIPLE ULCERS TO RLE c SCANT DRAINAGE, REDNESS RLE JUST BELOW THE KNEE DOWN TO HIS TOES, PAIN MANGED PER EMAR, DENIES ANY N/V SINCE NG TUBE REMOVED. NO ACUTE EVENTS THIS SHIFT. CALL LIGHT IN REACH, WILL CTM AND REPORT TO DAY RN.
--- NOTE | 2021-02-10 17:13 | NUR ---
HEART RHYTHM CHANGE DR. CHRISTIAN NOTIFIED THAT PT HAD 2 RUNS OF VTACH/INCREASED PVCS. THE FIRST RUN WAS 9 BEATS AND THE SECOND RUN 11 BEATS. VSS. PT DENIED CHEST PAIN, SHORTNESS OF BREATH OR ANY OTHER SYMPTOMS. WILL CONTINUE TO MONITOR.
--- NOTE | 2021-02-10 19:43 | NUR ---
SHIFT SUMMARY PT REMAINS IN THE HOSPITAL FOR GI CONCERNS AND RLE ULCER. PAIN HAS BEEN MANAGED WITH IV PAIN MEDICATION THIS SHIFT. DIET ADVANCED TO MECHANICAL SOFT THIS EVENING. PT'S ABD REMAINS DISTENDED WITH TYMPANIC BOWEL SOUNDS. PT DOES REPORT PASSING FLATUS AND TOLERATED MECHANICAL SOFT DINNER. PLAN FOR DIALYSIS TOMORROW AND FOR FURTHER FOLLOW-UP WITH [facility]TH[facility] ON FRIDAY OR POSSIBLY OUTPATIENT. PT HAD 2 RUNS OF VTACH THIS EVENING, HE WAS ASYMPTOMATIC, DR. CHRISTIAN NOTIFIED. VSS. WILL MONITOR UNTIL REPORT TO NOC IAN.
--- NOTE | 2021-02-11 03:39 | NUR ---
SHIFT SUMMARY A/OX3. VITALS STABLE. CONTINUING IV ANTIBIOTICS. PT RESTING COMFORTABLY THIS SHIFT. R LEG WRAPPED LIGHTLY WITH GAUZE, PULSE PRESENT. TOLERATING MECH SOFT DIET PER LAST SHIFT, NO N/V. WILL REPORT TO ONCOMING RN.
--- NOTE | 2021-02-11 03:56 | NUR ---
BLADDER SCAN PERFORMED DUE TO NO VOID DOCUMENTATION, AND SHOWS 143ML. WILL CONTINUE TO MONITOR.
--- NOTE | 2021-02-11 12:50 | NUR ---
PT TAKEN TO DIALYSIS AT THIS TIME.
--- NOTE | 2021-02-11 18:50 | NUR ---
SHIFT SUMMARY PT REMAINS IN THE HOSPITAL FOR IV ABX AND WOUND CARE. PAIN HAS BEEN MANAGED WITH FENTANYL THIS SHIFT. OXYCODNE WAS STARTED BUT MINIMALLY EFFECTIVE. DRESSING CHANGED TO RLE THIS AM. PT HAD DIALYSIS TODAY. PT WORKED WITH THERAPY AND IS A 1 ASSIST FOR TRANSFERS. VSS. WILL MONITOR UNTIL REPORT TO JEISON RN.
--- NOTE | 2021-02-12 07:42 | NUR ---
SUMMARY PT SLEPT MOST OF SHIFT.NO ACUTE CHANGES.
--- NOTE | 2021-02-12 19:43 | NUR ---
SHIFT SUMMARY PT A&OX4, VSS/RA, CBG CNI, TELE AFIB PVCS @ 75 BPM, JONAS PO, PAIN MANAGEBLE. S/P R BKA, ELEVATED ON PILLOW. REPORT PROVIDED TO LAINA SOSA.
[2021-02-13 06:09] LABS: BASOPHILS ABSOLUTE AUTO 0.01 K/mm3 (0.00-0.23); BASOPHILS PERCENT AUTO 0 % (0-2); EOSINOPHILS PERCENT AUTO 0 % (0-6); Hematocrit 27.5 % (37.0-53.0); Hemoglobin 9.3 g/dL (13.5-17.5); IMMATURE GRAN ABSOLUTE AUTO 0.12 K/mm3 (0.00-0.10); IMMATURE GRAN PERCENT AUTO 1 % (0-1); LYMPHOCYTES ABSOLUTE AUTO 0.35 K/mm3 (0.84-5.20); LYMPHOCYTES PERCENT AUTO 2 % (21-46); MONOCYTES ABSOLUTE AUTO 0.58 K/mm3 (0.16-1.47); MONOCYTES PERCENT AUTO 4 % (4-13); Mean Corpuscular HGB 33.2 pg (26.0-34.0); Mean Corpuscular HGB Conc 33.8 g/dL (31.5-36.5); Mean Corpuscular Volume 98 fL (80-100); Mean Platelet Volume 11.3 fL (9.1-12.4); NEUTROPHILS ABSOLUTE AUTO 13.35 K/mm3 (1.96-9.15); NEUTROPHILS PERCENT AUTO 93 % (41-73); Platelet Count 202 K/mm3 (150-400); RDW Coefficient Variation 16.9 % (11.7-14.2); RDW Standard Deviation 57.3 fL (35.1-46.3); White Blood Cell Count 14.41 K/mm3 (4.00-11.30)
[2021-02-13 06:23] LABS: Albumin, Blood 2.1 g/dL (3.4-5.0); Albumin/Globulin Ratio 0.5 (0.8-1.8); Bilirubin, Total 1.1 mg/dL (0.1-1.0); Bun/Creatinine Ratio 7.3 (12.0-20.0); Calcium, Blood 9.9 mg/dL (8.5-10.1); Creatinine, Blood 6.18 mg/dL (0.60-1.20); Globulin, Blood 4.1 g/dL (2.2-4.0); Potassium, Blood 5.1 mmol/L (3.5-5.5); Total Protein, Blood 6.2 g/dL (6.4-8.2)
--- NOTE | 2021-02-13 06:31 | NUR ---
PT IS A/OX3. ABLE TO MAKE HIS NEEDS KNOWN. NO EVENTS OVERNIGHT. PT IS POD #1 FOR RT BKA. RT STUMP SOCK/DRSG IS CDI. DRSG IN PLACE TO BUTTOCKS/SACRUM. TELE: AFIB. MECHANINAL SOFT/GROUND MEAT DIET. TOLERATED CL'S, CRACKERS & PUDDING WELL. CONT PULSE OX IN PLACE. CPAP ON WHILE SLEEPING. DECLINED SCHEDULED 2100 SENNA DUE TO HAVING LOOSE STOOL DAY BEFORE. BT'S POS X4. DENIED ANY N/V. PAIN MANAGED W/PRN MEDS PER EMAR.
--- NOTE | 2021-02-13 19:25 | NUR ---
SHIFT SUMMARY PT A&OX4, VSS/RA, POD1 R BKA, DRESSING DRY/INTACT, ELEVATED. PAIN TREATED WITH 5 OXY/TYLENOL AND 50 FENT PRN. JONAS PO RENAL DIET. DIALYSIS TODAY. REPORT PROVIDED TO LAINA SOSA.
[2021-02-14 04:35] LABS: BASOPHILS ABSOLUTE AUTO 0.02 K/mm3 (0.00-0.23); BASOPHILS PERCENT AUTO 0 % (0-2); EOSINOPHILS ABSOLUTE AUTO 0.03 K/mm3 (0.00-0.68); EOSINOPHILS PERCENT AUTO 0 % (0-6); Hematocrit 27.3 % (37.0-53.0); Hemoglobin 9.1 g/dL (13.5-17.5); IMMATURE GRAN PERCENT AUTO 1 % (0-1); LYMPHOCYTES ABSOLUTE AUTO 0.55 K/mm3 (0.84-5.20); LYMPHOCYTES PERCENT AUTO 3 % (21-46); MONOCYTES ABSOLUTE AUTO 1.33 K/mm3 (0.16-1.47); MONOCYTES PERCENT AUTO 8 % (4-13); Mean Corpuscular HGB 32.7 pg (26.0-34.0); Mean Corpuscular HGB Conc 33.3 g/dL (31.5-36.5); Mean Corpuscular Volume 98 fL (80-100); Mean Platelet Volume 11.4 fL (9.1-12.4); NEUTROPHILS ABSOLUTE AUTO 14.44 K/mm3 (1.96-9.15); NEUTROPHILS PERCENT AUTO 88 % (41-73); Platelet Count 190 K/mm3 (150-400); RDW Coefficient Variation 17.3 % (11.7-14.2); RDW Standard Deviation 60.7 fL (35.1-46.3); Red Blood Cell Count 2.78 M/mm3 (4.30-5.90); White Blood Cell Count 16.47 K/mm3 (4.00-11.30)
[2021-02-14 05:14] LABS: Albumin/Globulin Ratio 0.5 (0.8-1.8); Bilirubin, Total 0.9 mg/dL (0.1-1.0); Bun/Creatinine Ratio 7.2 (12.0-20.0); Calcium, Blood 9.4 mg/dL (8.5-10.1); Creatinine, Blood 5.15 mg/dL (0.60-1.20); Globulin, Blood 4.1 g/dL (2.2-4.0); Potassium, Blood 4.7 mmol/L (3.5-5.5); Total Protein, Blood 6.1 g/dL (6.4-8.2)
--- NOTE | 2021-02-14 06:35 | NUR ---
PT IS A/OX3. ABLE TO MAKE HIS NEEDS KNOWN. PLEASANT AND COOPERATIVE. PER REPORT, HAD DIALYSIS YESTERDAY. FISTULA TO LUE, +THRILL/BRUIT. HE IS POD 2 FOR RT BKA. RT STUMP SOCK/DRSG IS CDI. TELE: HAD 5 BEAT EPISODE OF VTAC, BUT STAFF WERE IN ROOM W/HIM AT TIME. DENIED ANY CHEST PAIN, PRESSURE OR PALPITATIONS. HAS HAD BEFORE. TELE STRIPS IN CHART. CHARGE SN AWARE. USES CPAP WHILE SLEEPING.
--- NOTE | 2021-02-14 16:31 | NUR ---
Pt is expected to discharge tomorrow. Pt stated he preferred [place] SNF and has been approved for care there. I faxed over all the information needed and Freya in Admissions called to let me know that the [place] does not accept any patients who receive dialysis treatment. I let Dr. Segovia know and I went upstairs and informed the patient. He was disappointed to hear this. I faxed over all paperwork needed to be accepted into [facility].
--- NOTE | 2021-02-14 17:23 | NUR ---
SUMMARY NO ACUTE CHANGES T/O SHIFT. PT SITTING UP IN RECLINER. DR MORALES IN TO CHANGE DRESSING TODAY. MEDICATED T/O DAY W/ROXICODONE PER ORDERS FOR PAIN. WORKED W/THERAPY. PLAN TO DC TO SNF TOMORROW.
[2021-02-15 04:52] LABS: BASOPHILS ABSOLUTE AUTO 0.02 K/mm3 (0.00-0.23); BASOPHILS PERCENT AUTO 0 % (0-2); EOSINOPHILS ABSOLUTE AUTO 0.06 K/mm3 (0.00-0.68); EOSINOPHILS PERCENT AUTO 0 % (0-6); Hemoglobin 9.5 g/dL (13.5-17.5); IMMATURE GRAN ABSOLUTE AUTO 0.13 K/mm3 (0.00-0.10); IMMATURE GRAN PERCENT AUTO 1 % (0-1); LYMPHOCYTES ABSOLUTE AUTO 0.47 K/mm3 (0.84-5.20); LYMPHOCYTES PERCENT AUTO 3 % (21-46); MONOCYTES ABSOLUTE AUTO 1.34 K/mm3 (0.16-1.47); MONOCYTES PERCENT AUTO 8 % (4-13); Mean Corpuscular HGB 32.2 pg (26.0-34.0); Mean Corpuscular HGB Conc 32.8 g/dL (31.5-36.5); Mean Corpuscular Volume 98 fL (80-100); Mean Platelet Volume 11.2 fL (9.1-12.4); NEUTROPHILS ABSOLUTE AUTO 15.09 K/mm3 (1.96-9.15); NEUTROPHILS PERCENT AUTO 88 % (41-73); Platelet Count 199 K/mm3 (150-400); RDW Coefficient Variation 17.2 % (11.7-14.2); RDW Standard Deviation 59.8 fL (35.1-46.3); Red Blood Cell Count 2.95 M/mm3 (4.30-5.90); White Blood Cell Count 17.11 K/mm3 (4.00-11.30)
[2021-02-15 05:44] LABS: Albumin, Blood 2.1 g/dL (3.4-5.0); Albumin/Globulin Ratio 0.5 (0.8-1.8); Bun/Creatinine Ratio 7.8 (12.0-20.0); Calcium, Blood 9.4 mg/dL (8.5-10.1); Creatinine, Blood 6.39 mg/dL (0.60-1.20); Globulin, Blood 4.1 g/dL (2.2-4.0); Potassium, Blood 4.8 mmol/L (3.5-5.5); Total Protein, Blood 6.2 g/dL (6.4-8.2)
[2021-02-15 05:45] LABS: SARS-Cov-2 (COVID-19) PCR, MMC NEGATIVE (NEGATIVE)
--- NOTE | 2021-02-15 06:44 | NUR ---
POD 3 S/P R BKA. PT VSS T/O NIGHT. DRESSING CDI. PT MED FOR PAIN X1. PT ONLY ALLOWING MINIMAL REPOSITIONING IN BED. AWAITING DC TO SNF.
--- NOTE | 2021-02-15 10:11 | NUR ---
LOST IV ACCESS
--- NOTE | 2021-02-15 10:45 | NUR ---
DR BONDS IN TO SEE PT.
--- NOTE | 2021-02-15 13:26 | NUR ---
PT TO DIALYSIS
--- NOTE | 2021-02-15 13:44 | NUR ---
FATIGUED PT VERY TIRED TODAY. SLEEPING MOST OF TIME. WAKES TO VOICE AND THEN RETURNS TO SLEEP. IN DIALYSIS AT THIS TIME.
--- NOTE | 2021-02-15 14:43 | NUR ---
DR VALENZUELA CALLED REGARDING PT'S FATIGUE DISCUSSED FACT PT HAS ONLY HAD ONE ROXICODONE THIS SHIFT. ALSO DISCUSSED TEMP AND ICREASED WBC. DR VALENZUELA PLANNING TO ORDER BLOOD CX.
--- NOTE | 2021-02-15 17:20 | NUR ---
SUMMARY PT WAS LETHARGIC FOR MOST OF DAY. WORKED WITH THERAPY THIS MORNING, SITTING UP ON EDGE OF BED AND DOING EXERCISES IN BED. PT REPORTED FELT "VERY TIRED" AND SLEPT FOR MOST OF DAY. WENT TO DIALYSIS AND THEY ALSO REPORTED PT VERY FATIGUED. NOW BACK TO UNIT. SEEMS MORE ALERT. CALL LIGHT IN REACH. DENIES ANY NEEDS AT THIS TIME.
[2021-02-16 16:48] LABS: SARS-Cov-2 (COVID-19) PCR, MMC NEGATIVE (NEGATIVE)
--- NOTE | 2021-02-16 18:38 | NUR ---
SHIFT SUMMARY PT POD# 4 FOR R BKA. PT DENIES THE NEED FOR PAIN MEDICATION THIS SHIFT. PT REPORTS CONSTIPATION AND ABD IS DISTENDED. TREATED PER EMR FOR CONSTIPATION. PT HAS YET TO HAVE A BM. PT WAS SUPPOSED TO DC TO [facility] BUT IS NOW GOING TOMORROW AM. VSS. WILL REPORT TO JEISON SOSA.
--- NOTE | 2021-02-17 03:48 | NUR ---
SHIFT SUMMARY A/OX4. POD5 RBKA. STUMP SOCK C/D/I. PT SAT AT EDGE OF BEDSIDE THIS EVENING. HAD SOME EPISODES OF ANXIETY, GOT ONE TIME ORDER FOR ATIVAN PER MD. APPEARS TO HAVE CALMED PT ANXIETY HE IS RESTING NOW. PT STATES ABDOMINAL DISTENTION IS NORMAL, NO REPORT OF BM SINCE 02/11, BUT PT STATES THAT HE HAD BOWEL MOVEMENT YESTERDAY. VITALS STABLE. PLAN FOR DC TO SNF THIS AM.
--- NOTE | 2021-02-17 08:49 | NUR ---
PT HAS BEEN LETHARGIC THIS AM. PT TO DIALYSIS AT THIS TIME PRIOR TO DC. PT SLEPT THROUGH ASSESSMENT AND TRANSFER. BREAKFAST AND AM MEDS HELD AT THIS TIME UNTIL PT MORE ALERT. ECONOMIC DEVELOPMENT DIRECTOR AWARE.
--- NOTE | 2021-02-17 11:44 | NUR ---
PT RETURNED TO ROOM POST DIALYSIS. PT MORE ALERT. ATE BREAKFAST AND TOOK AM MEDS. PT TO TRANSPORT TO REHAB AT THIS TIME. MD ORDERS COMPLETE. WILL CALL REPORT TO ACCEPTING FACILITY RN.
== END 2021-02-17 12:35 | DRG 616 ==
LOC: ER 14:54 → SURS 20:18
PROVIDERS: Family Medicine; Internal Medicine; Internal Medicine Endocrinology, Diabetes & Metabolism; Orthopaedic Surgery; Physician Assistant; Student in an Organized Health Care Education/Training Program; ADMIT Internal Medicine
PROC: 5A1D70Z Performance of Urinary Filtration, Intermittent, Less than 6 Hours Per Day (ICD-10-PCS; 2021-02-09)
PROC: 0DJ08ZZ Inspection of Upper Intestinal Tract, Via Natural or Artificial Opening Endoscopic (ICD-10-PCS; 2021-02-12)
PROC: 0Y6H0Z1 Detachment at Right Lower Leg, High, Open Approach (ICD-10-PCS; principal; 2021-02-12 07:30)
DX: E11.621 Type 2 diabetes mellitus with foot ulcer (principal); K20.91 Esophagitis, unspecified with bleeding; L03.115 Cellulitis of right lower limb; I50.22 Chronic systolic (congestive) heart failure; E87.1 Hypo-osmolality and hyponatremia; L97.419 Non-pressure chronic ulcer of right heel and midfoot with unspecified severity; N18.6 End stage renal disease; K59.03 Drug induced constipation; T40.2X5A Adverse effect of other opioids, initial encounter; L89.151 Pressure ulcer of sacral region, stage 1; Z20.822 Contact with and (suspected) exposure to COVID-19; I11.0 Hypertensive heart disease with heart failure; I25.10 Atherosclerotic heart disease of native coronary artery without angina pectoris; E11.51 Type 2 diabetes mellitus with diabetic peripheral angiopathy without gangrene; D63.1 Anemia in chronic kidney disease; M66.871 Spontaneous rupture of other tendons, right ankle and foot; F41.9 Anxiety disorder, unspecified; I48.0 Paroxysmal atrial fibrillation; Z87.01 Personal history of pneumonia (recurrent); Z99.2 Dependence on renal dialysis; Z85.46 Personal history of malignant neoplasm of prostate; Z95.1 Presence of aortocoronary bypass graft; Z89.512 Acquired absence of left leg below knee; Z90.79 Acquired absence of other genital organ(s); Z90.5 Acquired absence of kidney; Z95.5 Presence of coronary angioplasty implant and graft; Z87.891 Personal history of nicotine dependence; Z88.0 Allergy status to penicillin; Z88.1 Allergy status to other antibiotic agents; Z88.8 Allergy status to other drugs, medicaments and biological substances; Z79.82 Long term (current) use of aspirin; Z79.899 Other long term (current) drug therapy
CPT/HCPCS: 36415; 37224; 37228; 72170; 73701; 80048; 80053; 80069; 82947; 83605; 83735; 85014; 85018; 85025; 85610; 85651; 85730; 86140; 86850; 86900; 86901; 87040; 88307; 90686; 93005; 93010; 94660; 94760; 94762; 96365-59; 96375-59; 96376-59; 97110; 97162; 97164; 97167; 97530; 97535; 99285-25; A9270; C9113; J0878; J0881; J1100; J2185; J2250; J2370; J2405; J2704; J2765; J3010; J7030; J7040; J7042; J7050; Q9967; U0004

== ENCOUNTER 2021-03-07 16:47 | Emergency (ER) | payer OTHER ==
[~2021-03-07] VITALS: Ht 180.3 cm; Wt 95.2 kg
[~2021-03-07 16:47] MED LIST changes: +SUPER B COMPLEX PO; +THERA-D2000 UNIT PO
[2021-03-07] MEDS ORDERED: PANT20 PO (17:34)
[2021-03-07] MEDS ORDERED: SENN187 PO (17:34)
[2021-03-07] MEDS ORDERED: ACET500 PO (17:34)
[2021-03-07] MEDS ORDERED: JUVEN PACKET1 EAC3 PO (17:34)
[2021-03-07 17:48] LABS: BASOPHILS ABSOLUTE AUTO 0.03 K/mm3 (0.00-0.23); BASOPHILS PERCENT AUTO 0 % (0-2); EOSINOPHILS ABSOLUTE AUTO 0.04 K/mm3 (0.00-0.68); EOSINOPHILS PERCENT AUTO 1 % (0-6); Hematocrit 28.3 % (37.0-53.0); Hemoglobin 9.6 g/dL (13.5-17.5); IMMATURE GRAN ABSOLUTE AUTO 0.03 K/mm3 (0.00-0.10); IMMATURE GRAN PERCENT AUTO 0 % (0-1); LYMPHOCYTES ABSOLUTE AUTO 0.47 K/mm3 (0.84-5.20); LYMPHOCYTES PERCENT AUTO 6 % (21-46); MONOCYTES ABSOLUTE AUTO 1.11 K/mm3 (0.16-1.47); MONOCYTES PERCENT AUTO 13 % (4-13); Mean Corpuscular HGB 31.8 pg (26.0-34.0); Mean Corpuscular HGB Conc 33.9 g/dL (31.5-36.5); Mean Corpuscular Volume 94 fL (80-100); Mean Platelet Volume 11.3 fL (9.1-12.4); NEUTROPHILS PERCENT AUTO 80 % (41-73); Platelet Count 235 K/mm3 (150-400); RDW Coefficient Variation 15.5 % (11.7-14.2); RDW Standard Deviation 52.8 fL (35.1-46.3); Red Blood Cell Count 3.02 M/mm3 (4.30-5.90); White Blood Cell Count 8.28 K/mm3 (4.00-11.30)
[2021-03-07] MEDS ORDERED: CEFD300 PO (18:18)
[2021-03-07 18:19] LABS: Bun/Creatinine Ratio 6.6 (12.0-20.0); Creatinine, Blood 2.88 mg/dL (0.60-1.20); Potassium, Blood 3.4 mmol/L (3.5-5.5)
== END 2021-03-07 19:24 | disposition home or self-care (01) ==
LOC: ER 16:47
PROVIDERS: Emergency Medicine
DX: L03.012 Cellulitis of left finger (principal); L03.115 Cellulitis of right lower limb; Z88.0 Allergy status to penicillin; Z88.8 Allergy status to other drugs, medicaments and biological substances; Z91.018 Allergy to other foods; Z91.011 Allergy to milk products; Z88.1 Allergy status to other antibiotic agents; Z79.899 Other long term (current) drug therapy; Z79.82 Long term (current) use of aspirin; I25.10 Atherosclerotic heart disease of native coronary artery without angina pectoris; I11.0 Hypertensive heart disease with heart failure; I50.9 Heart failure, unspecified; E11.9 Type 2 diabetes mellitus without complications; Z99.2 Dependence on renal dialysis; Z87.891 Personal history of nicotine dependence
CPT/HCPCS: 36415; 73560-RT; 80048; 85025; 87070; 87205; 99283; A9270